=== PATIENT | female | born 1945 | race Caucasian/White ===

== ENCOUNTER → 2016-11-28 | Outpatient (CLI) | payer OTHER ==
[~2016-11-28] MED LIST: BUPR-79 PO; CHOL1CAP57 PO; CLC/300 PO; CLX20 PO; DOXY50CA PO; LEVO125T72 PO; LORA0.5T12 PO; METO1TAB69 PO; METR1GEL3 TOP; PRLSR20 PO; TRIATAB3 PO; ULT50X PO
[2016-11-28 17:11] LABS: ALT/SGPT 34 U/L (12-78); BLOOD UREA NITROGEN 30 mg/dl (7-18); BUN/CREATININE RATIO 30.7 (10-20); CALCIUM 8.9 mg/dl (8.5-10.1); CARBON DIOXIDE 25 mmol/L (21-32); CHLORIDE 99 mmol/L (98-107); CHOLESTEROL 281 mg/dl (0-200); CREATININE 0.97 mg/dl (0.60-1.20); GLUCOSE 78 mg/dl (70-99); POTASSIUM 4.6 mmol/L (3.5-5.1); SODIUM 133 mmol/L (136-145)
[2016-11-28 17:22] LABS: ALB/GLOB RATIO 1.1 (0.9-2); ALKALINE PHOSPHATASE 43 U/L (45-117); AST/SGOT 18 U/L (15-37); CHOLESTEROL/HDL RATIO 4.1; HDL CHOLESTEROL 69 mg/dl; LDL CHOLESTEROL CALCULATED 172 mg/dl; TRIGLYCERIDES 198 mg/dl (0-150); VERY LOW DENSITY LIPOPROT CALC 40 mg/dl
== END | disposition home or self-care (01) ==
LOC: C.LABPVFM 14:36
PROVIDERS: ATTEND Family Medicine
DX: Z00.00 Encounter for general adult medical examination without abnormal findings (principal); E78.5 Hyperlipidemia, unspecified; I10 Essential (primary) hypertension; E03.9 Hypothyroidism, unspecified

== ENCOUNTER 2016-12-03 15:27 | Emergency (ER) | payer OTHER ==
[~2016-12-03] VITALS: Ht 167.6 cm; Wt 95.3 kg
[2016-12-03 15:50] VITALS: BP 150/71; PULSE 75; TEMP 36.9; O2SAT 98; Ht 167.6 cm; Wt 95.3 kg
--- NOTE | 2016-12-03 16:43 | EMERGENCY ROOM VISIT NOTE ---
History Report prepared by Annmarie: Adrián Urbina Under the Supervision of: Dr. Genny Dias M.D. First contact with patient: 16:09 Chief Complaint: VAGINAL BLEEDING Stated Complaint: VAGINAL BLEEDING History of Present Illness The patient is a 71 year old female who presents to the Emergency Room with complaints of sudden vaginal bleeding beginning a few hours prior to arrival. She states she was applying an over the counter moisturizer for vaginal dryness and noticed bleeding. The patient notes she observed the area with a mirror and believes she saw a tear that was causing the bleeding. She states she had a normal bowel movement prior to the moisturizing application but denies straining too hard. The patient denies having issues with abnormal vaginal bleeding in the past. She denies a hysterectomy or similar procedures. The patient denies a fever, abdominal pain, and vomiting. 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 A total of 10 systems reviewed and were otherwise negative. Past Medical & Surgical Medical Problems: (1) Hypertension (2) Rosacea Surgical Problems: (1) History of carpal tunnel surgery Family History Cancer Diabetes mellitus Hypertension Social History Smoking Status: Never Smoker Marital Status: Housing Status: lives with family Occupation Status: employed Current/Historical Medications Scheduled Bupropion (Wellbutrin Sr), 150 MG PO QAM Cholecalciferol (Vitamin D3), 1 CAP PO BID Citalopram (Citalopram Hydrobromide), 20 MG PO QAM Clindamycin HCl (Clindamycin HCl), 2 CAP PO DENTAL PROCEDURE Doxycycline Hyclate (Vibramycin), 50 MG PO QAM Levothyroxine Sodium (Synthroid), 125 MCG PO QAM Metoprolol Succ (Toprol Xl) (Toprol-Xl ), 100 MG PO QAM Metronidazole Hcl (Metrogel), 1 DOSE TOP DAILY Omeprazole (Prilosec), 20 MG PO QAM Triamterene/Hctz (Triamterene/Hctz 37.5-25MG), 1 TAB PO QAM Scheduled PRN Lorazepam (Lorazepam), 1 TAB PO HS PRN for Sleep Tramadol HCl (Tramadol HCl), 1 TAB PO Q4-6HRS PRN for Pain Allergies Coded Allergies: Penicillins (Verified Allergy, Intermediate, rash joints getting stiff, 07/22/15) Sulfa Drugs (Verified Allergy, Intermediate, rash joints get stiff, ) Propoxyphene (Verified Adverse Reaction, Intermediate, NAUSEA AND VOMITING , 07/22/15) Physical Exam Vital Signs Date Time Temp Pulse Resp B/P Pulse Ox O2 Delivery O2 Flow Rate FiO2 12/03/16 15:50 36.9 75 20 150/71 98 Room Air Physical Exam Vital signs reviewed. General: Elderly. Well-appearing female, in no significant distress. HEENT: No scleral icterus, PERRLA, neck supple. Atraumatic. Cardiovascular: Regular rate and rhythm, no extra sounds. Pulmonary: Clear to auscultation bilaterally, normal work of breathing. Abdomen: Soft, nontender, nondistended, positive bowel sounds. Pelvic Exam: Abrasion noted to the anterior vaginal wall. Old blood in the vault with no active bleeding. Musculoskeletal: Atraumatic, no peripheral edema. Neurologic: Patient awake alert and oriented x 3 Skin: Warm, dry, no rash Medical Decision & Procedures ED Course 162: Past medical records reviewed. The patient was evaluated in room C3. A complete history and physical examination was performed. 1644: Upon reevaluation, the patient appeared to have improvement of her symptoms. I discussed findings with her. She verbalized agreement of the treatment plan. The patient was discharged home. Medical Decision Etiologies such as dysfunction uterine bleeding, bleeding dyscrasia, trauma, infection, as well as others were entertained. This patient was evaluated and appeared to be in no significant distress. Physical examination is fairly unrevealing. Pelvic exam was performed and reveals a mild abrasion to the anterior vaginal wall. There is no active bleeding at this time. There is very scant amount of older blood in the vaginal vault. Patient was advised of the findings. She was using a vaginal suppository for dryness, I suspect she has scraped the tissue and created an abrasion. The patient states she is under close observation by [employer] for endometrial thickening. She was advised to contact her [employer] later in the week to schedule short-term follow-up. She will return to the ER for worsening of symptoms or any medical concerns. Impression Primary Impression: Vaginal trauma Scribe Attestation The scribe's documentation has been prepared under my direction and personally reviewed by me in its entirety. I confirm that the note above accurately reflects all work, treatment, procedures, and medical decision making performed by me. Departure Information Dispostion Home / Self-Care Referrals Meet Escobar M.D. (PCP) Forms HOME CARE DOCUMENTATION FORM, IMPORTANT VISIT INFORMATION, WORK / SCHOOL INSTRUCTIONS Patient Instructions My [facility] Additional Instructions Diagnosis: Vaginal trauma Do not insert anything into the vagina for the next 48 hours. Follow-up with Dr. Ortiz regarding the vaginal bleeding if it continues and vaginal dryness. Return to the emergency department for worsening of symptoms or any medical concerns. Problem Qualifiers Primary Impression: Vaginal trauma Encounter type: initial encounter Qualified Codes: S39.93XA - Unspecified injury of pelvis, initial encounter
== END 2016-12-03 16:56 | disposition home or self-care (01) ==
LOC: C.EDB 15:28 → C.EDC 16:56
DX: S39.94XA Unspecified injury of external genitals, initial encounter (principal); X58.XXXA Exposure to other specified factors, initial encounter; I10 Essential (primary) hypertension

== ENCOUNTER → 2017-01-01 | Outpatient (CLI) | payer OTHER ==
--- NOTE | 2017-01-01 12:15 | DIAGNOSTIC IMAGING REPORT ---
SCOLIOSIS 2 VIEW (AP LAT) CLINICAL HISTORY: SACROILIITIS. Back pain. COMPARISON STUDY: None. FINDINGS: AP and lateral views of the entire spine. Moderate to severe levoscoliosis of the lumbar spine. This measures a Mercer angle of 45 degrees measured from the superior endplate of L1 to the superior endplate of L5. Cervical and thoracic spine curvature is intact. There is moderate left and mild right degenerative changes within the sacroiliac joints. There is 5 mm of anterolisthesis of C3 on C4. Moderate to severe degenerative disc disease seen throughout the majority of the cervical and lumbar spine. No acute fractures identified. IMPRESSION: 1. Moderate to severe levoscoliosis of the lumbar spine. 2. Approximately 5 mm of anterolisthesis of C3 on C4. This favors long-standing degenerative change. 3. Moderate to severe degenerative disc disease within the majority of the cervical and lumbar spine. Electronically signed by: Victor Manuel Keating M.D. 01/01/2017 12:14 PM Dictated Date/Time: 01/01/2017 12:07 PM
== END | disposition home or self-care (01) ==
LOC: C.RADBC 11:42
PROVIDERS: ATTEND Anesthesiology
DX: M46.1 Sacroiliitis, not elsewhere classified (principal); M41.9 Scoliosis, unspecified; M43.12 Spondylolisthesis, cervical region; M50.30 Other cervical disc degeneration, unspecified cervical region; M51.36 Other intervertebral disc degeneration, lumbar region

== ENCOUNTER → 2017-02-22 | Outpatient (CLI) | payer OTHER ==
[~2017-02-22] MED LIST changes: +METO100T44 PO; -METO1TAB69 PO
--- NOTE | 2017-03-05 08:22 | CODING QUERY MEDICAL NECESSITY ---
SUPPORTING DIAGNOSIS NEEDED Dr. Vasques, A supporting diagnosis is required for the test/procedure performed on this patient in order for us to be reimbursed by the patient's insurance. Please provide a supporting diagnosis for the following test/procedure listed below next to the test name along with your signature. *If there is no additional diagnosis for this patient that would support the following test/procedure please document that below next to the test/procedure. Test(s)/Procedure(s) that require a supporting diagnosis: * ([id number]) DXA BONE DENSITY, AXIAL DIAGNOSIS: DATE OF SERVICE: 02/22/17 Provider Signature: Date: Thank you Ken Almanza [facility] Information Management Once completed, please kindly fax back to [phone] For questions please call [phone]
== END | disposition home or self-care (01) ==
LOC: C.MAMM 14:47
PROVIDERS: ATTEND Neurological Surgery
DX: M41.9 Scoliosis, unspecified (principal); Z13.820 Encounter for screening for osteoporosis

== ENCOUNTER → 2017-03-20 | Outpatient (CLI) | payer OTHER ==
--- NOTE | 2017-03-20 15:22 | MAMMOGRAPHY REPORT ---
BILATERAL DIGITAL SCREENING MAMMOGRAM WITH CAD: 03/20/2017 CLINICAL HISTORY: Routine screening examination. TECHNIQUE: Bilateral CC and MLO views were obtained. Current study was also evaluated with a Comput er Aided Detection (CAD) system. COMPARISON: Comparison is made to exams dated: 02/24/2016 mammogram, 02/23/2015 mammogram, 02/17/2014 mammogram, 02/10/2013 mammogram, 12/08/2011 mammogram, and 12/02/2010 mammogram - [facility]. BREAST COMPOSITION: There are scattered areas of fibroglandular density in both breasts. FINDINGS: There are a few benign rim calcifications in the right breast. No suspicious mass, viet ectural distortion or cluster of microcalcifications is seen. IMPRESSION: ACR BI-RADS CATEGORY 1: NEGATIVE There is no mammographic evidence of malignancy. A 1 year screening mammogram is recommended. The p atient will receive written notification of the results. Approximately 10% of breast cancers are not detected with mammography. A negative mammographic repor t should not delay biopsy if a clinically suggestive mass is present. Chasity Garcia M.D. ay/:03/20/2017 13:56:10 Twist Maker: Earlene LISA(R)(M), [facility] letter sent: Normal 1/2 BI-RADS Code: ACR BI-RADS Category 1: Negative
== END | disposition home or self-care (01) ==
LOC: C.MAMM 11:08
PROVIDERS: ATTEND Obstetrics & Gynecology
DX: Z12.31 Encounter for screening mammogram for malignant neoplasm of breast (principal)

== ENCOUNTER → 2017-09-28 | Outpatient (CLI) | payer OTHER ==
[2017-09-28 13:13] LABS: ALT/SGPT 38 U/L (12-78); AST/SGOT 21 U/L (15-37); BLOOD UREA NITROGEN 20 mg/dl (7-18); BUN/CREATININE RATIO 21.3 (10-20); CARBON DIOXIDE 27 mmol/L (21-32); CHLORIDE 101 mmol/L (98-107); CHOLESTEROL 277 mg/dl (0-200); CREATININE 0.94 mg/dl (0.60-1.20); GLUCOSE 86 mg/dl (70-99); POTASSIUM 4.3 mmol/L (3.5-5.1); SODIUM 135 mmol/L (136-145); TRIGLYCERIDES 155 mg/dl (0-150); VERY LOW DENSITY LIPOPROT CALC 31 mg/dl
[2017-09-28 13:24] LABS: ALKALINE PHOSPHATASE 52 U/L (45-117); CHOLESTEROL/HDL RATIO 4.4; HDL CHOLESTEROL 63 mg/dl; LDL CHOLESTEROL CALCULATED 183 mg/dl; THYROID STIMULATING HORMONE 0.566 uIu/ml (0.300-4.500)
== END | disposition home or self-care (01) ==
LOC: C.LABPVFM 09:11
PROVIDERS: ATTEND Family Medicine
DX: E78.5 Hyperlipidemia, unspecified (principal); E03.9 Hypothyroidism, unspecified

== ENCOUNTER → 2018-03-04 | Outpatient (CLI) | payer OTHER | END | disposition home or self-care (01) | LOC: C.PATHSPEC 18:01 | PROVIDERS: ATTEND Dermatology | DX: C44.519 Basal cell carcinoma of skin of other part of trunk (principal) ==

== ENCOUNTER → 2018-06-12 | Outpatient (CLI) | payer OTHER | END | disposition home or self-care (01) | LOC: C.LAB1850 11:59 | PROVIDERS: ATTEND Family Medicine | DX: E03.9 Hypothyroidism, unspecified (principal) ==

== ENCOUNTER 2018-10-31 09:41 | Inpatient (IN) ==
--- NOTE | 2018-08-07 09:18 | PAT Medication Instructions ---
Medication Instructions Date of Service August 07, 2018 Home Medications bupropion HCl 150 mg PO QAM cholecalciferol (vitamin D3) 1,000 unit PO QAM citalopram 20 mg PO QAM clindamycin HCl 600 mg PO DAILY NEEDED diclofenac sodium 1 - 2 mg PO BID doxycycline hyclate 50 mg PO WK NEEDED levothyroxine 125 mcg PO QAM lorazepam 1 mg PO HS NEEDED metoprolol succinate 50 mg PO QAM metronidazole 1 applic TOPICAL DAILY NEEDED omeprazole 20 mg PO QAM simvastatin 40 mg PO HS tramadol 50 mg PO Q6H NEEDED triamterene-hydrochlorothiazid 1 cap PO QAM Continue as directed doxycycline hyclate 50 mg PO WK NEEDED Check with MD/Surgeon-instructions diclofenac sodium 1 - 2 mg PO BID Hold the morning of surgery cholecalciferol (vitamin D3) 1,000 unit PO QAM clindamycin HCl 600 mg PO DAILY NEEDED metronidazole 1 applic TOPICAL DAILY NEEDED triamterene-hydrochlorothiazid 1 cap PO QAM Take morning of surgery Take the following medication the morning of surgery with a sip of water, OTHERWISE NOTHING TO EAT OR DRINK AFTER MIDNIGHT: bupropion HCl 150 mg PO QAM citalopram 20 mg PO QAM metoprolol succinate 50 mg PO QAM omeprazole 20 mg PO QAM tramadol 50 mg PO Q6H NEEDED - STOP 4 HOURS BEFORE SURGERY Take evening before surgery lorazepam 1 mg PO HS NEEDED simvastatin 40 mg PO HS tramadol 50 mg PO Q6H NEEDED Other Notes If you have any questions please call us at [phone] or [phone] or [phone] or [phone]
--- NOTE | 2018-08-07 14:01 | Anesthesiology Consultation ---
Date of Service August 07, 2018 Assessment & Plan (1) Encounter for pre-operative examination: Chart Review Chart Review: Acceptable Risk for Surgery and Patient seen in Pre Admission Testing Consults Requested none Teaching & Discussion Pre-Anesthesia Teaching/Discussion Notes: Instructed NPO after midnight before surgery,except medications with 15 cc of water. Medication instructions provided according to the PAT guidelines. Additional Notes PCP was notified about patients persistent hyponatremia and asked to evaluate at her pre-op clearance. Patient was seen by PCP on 08/15/18. Per PCP, " her Na + is slightly lower than normal." "patient has been consistently hyponatremic but only slightly. Has never had any K+ abnormalities. Pt is on HCTZ which could be a contributor. Since the abnormalities are relatively minute, I don't not (sic) feel that this should be an issue with regards to anesthesia/surgery. I did advise pt to drink a gatorade every other day from now till the surgery." "Pt is therefore medically "cleared"/optimized for her knee surgery." History Surgery Operation Date: 08/29/18 09:35 Proposed Procedures p Right Knee Revision Arthroplasty, Revision Tibial Component - Nando Romo MD Height/Weight Height: 5 ft 5 in Weight: 89.9 kg Allergies Allergy/AdvReac Type Severity Reaction Status Date / Time Penicillins Allergy Intermediate rash Verified 08/05/18 12:14 joints getting stiff Sulfa (Sulfonamide Allergy Intermediate rash Verified 08/05/18 12:14 Antibiotics) joints get stiff propoxyphene AdvReac Intermediate NAUSEA AND Verified 08/05/18 12:14 VOMITING Medications Home Medications Medication Instructions Recorded Confirmed Last Taken bupropion HCl 150 mg PO QAM 08/05/18 08/05/18 Unknown cholecalciferol (vitamin D3) 1,000 unit PO QAM 08/05/18 08/05/18 Unknown citalopram 20 mg PO QAM 08/05/18 08/05/18 Unknown clindamycin HCl 600 mg PO DAILY PRN 08/05/18 08/05/18 Unknown diclofenac sodium 1 - 2 mg PO BID 08/05/18 08/05/18 Unknown doxycycline hyclate 50 mg PO WK PRN 08/05/18 08/05/18 Unknown levothyroxine 125 mcg PO QAM 08/05/18 08/05/18 Unknown lorazepam 1 mg PO HS PRN 08/05/18 08/05/18 Unknown metoprolol succinate 50 mg PO QAM 08/05/18 08/05/18 Unknown metronidazole 1 applic TOPICAL DAILY PRN 08/05/18 08/05/18 Unknown omeprazole 20 mg PO QAM 08/05/18 08/05/18 Unknown simvastatin 40 mg PO HS 08/05/18 08/05/18 Unknown tramadol 50 mg PO Q6H PRN 08/05/18 08/05/18 Unknown triamterene-hydrochlorothiazid 1 tab PO QAM 08/05/18 08/05/18 Unknown Past Medical History Medical History Anxiety Bipolar disorder Cancer hx melanoma - DJD (degenerative joint disease) Exertional dyspnea had stress testing done - negative result GERD (gastroesophageal reflux disease) Hypertension Hypothyroidism Incontinence of urine urgency and incontinence especially in the morning Nausea and vomiting after administration of anesthetic agent Osteoarthritis Scoliosis Past Surgical History Surgical History History of bilateral tubal ligation History of blepharoplasty History of carpal tunnel release of both wrists History of colonoscopy History of knee replacement procedure of left knee History of knee replacement procedure of right knee History of tonsillectomy Past Anesthesia History No Hx of Anesthesia Complications (OTHER THAN PONV) Mother has history of PONV, otherwise no family history of anesthesia complications. History of PONV Yes Motion Sickness Screening History of Motion Sickness: No Social History Smoking Status: Never smoker Do You Dip or Chew Tobacco: No Hx Alcohol Use: No Hx Substance Use: No substance use type: does not use Exercise / Class Metabolic Activity III < 4 Walking/Shop/Light housework (Limited by scoliosis and loss of muscle tone and also by knee pain. Likes to go to stores and walk around to keep moving. When walking up a FOS, patient denies CP but does report SOB. States she gets no SOB on flat surfaces. ) Review of Systems Patient denies chest pain, reflux, cough, wheezing, palpitations. Patient does endorse SOB/ALVARADO when walking up stairs or hills. Had a cardiac workup at [facility] 3- 4 years ago and it was negative. Physical Exam Vital Signs BP: 120/80 P: 62 R: 18 T: 98.2 SPO2: 99% on RA ENMT external ear and nose normal, oropharynx normal Thyromental Distance: < 3.5 Finger Breadths (3) Mallampati Class: III Mouth / Teeth: 2 1. Fair dentition with some missing teeth Neck normal visual inspection and trachea midline Respiratory normal respiratory effort, lungs clear to auscultation Cardiovascular Rate/Rhythm: regular rate and regular rhythm Heart Sounds: no murmur Vessels: no carotid bruit Psychiatric A+Ox3, euthymic affect Testing Laboratory Results 08/07/18 14:18 08/07/18 14:18 Blood Type A Positive 08/07/18 14:18 Antibody Screen NEGATIVE 08/07/18 14:18 PT 10.1 Seconds (9.0-12.0) 08/07/18 14: INR 1.0 (0.9-1.1) 08/07/18 14:18 APTT 26.6 Seconds (21.0-31.0) 08/07/18: Hemoglobin A1c 5.8 % (4.5-5.6) H 08/07/18 14:18 Urine Color Yellow 08/07/18 14:18 Urine Appearance Clear (Clear) 08/07/18 14:18 Urine pH 7.5 (4.5-7.5) 08/07/18 14:18 Ur Specific [place] 1.008 (1.000-1.030) 08/07/18 14:18 Urine Protein Negative (Negative) 08/07/18 14:18 Urine Glucose (UA) Negative (Negative) 08/07/18: Urine Ketones Negative (Negative) 08/07/18: Urine Nitrite Negative (Negative) 08/07/18 14:18 Ur Leukocyte Esterase 2+ (Negative) H 08/07/18 14:18 Urine WBC (Auto) 5-10 /hpf (0-5) H 08/07/18 14:18 Urine RBC (Auto) 0-4 /hpf (0-4) 08/07/18:18 U Hyaline Cast (Auto) 1-5 /lpf (0-5) 08/07/18 14:18 U Epithel Cells (Auto) 10-20 /lpf (0-5) H 08/07/18:18 Urine Bacteria (Auto) 1+ (Negative) H 08/07/18 14:18 08/07/18 14:18 Urine Culture - Final Urine,Clean Catch Group B Beta Strep Patient has no urinary symptoms that she expressed and no sensitivity was given on the urine. Electrocardiogram Date: 08/07/18 Findings: + NSR @ (61) PACs Chest X-Ray Date: 08/07/18 FINDINGS: The heart is normal in size. There is no failure. There is no lobar consolidation. There is a hazy opacity at the level of the right cardiophrenic angle. Although nonspecific, this likely represents a summation of vascular markings with fat pad. There is no corresponding mass in the lateral projection. IMPRESSION: 1. Hazy opacity at the level of the right cardiophrenic angle, likely a summation 2. No evidence of failure. No evidence of lobar consolidation Stress Test Date: 12/04/12 Type: DSE Resting EF: 60% Resting LV Function: normal Resting RWMA: + none Valvular Disease: no significant valvular disease and MR (trivial) Negative DSE for ischemia at 88% MPHR. Positive Dobutamine ECG at 88% MPHR. No symptoms. Occasional PAC's noted during Dobutamine infusion and into recovery. ECHO: Mild TR Mild right atrial dilation Patient was seen by Dr. Montes in consultation after this test, who stated "Dobutamine stress echocardiogram in November was with normal echo response to stress. No echo evidence of dobutamine stress induced myocardial ischemia. There were borderline ECG changes. However, the echo response was normal. Normal resting left ventricular systolic function. No significant valvular abnormalities."
--- NOTE | 2018-08-07 14:43 | XRay Report ---
XR chest Pre-admission PA/Lat CLINICAL HISTORY: Preoperative chest COMPARISON STUDY: No previous studies for comparison. FINDINGS: The heart is normal in size. There is no failure. There is no lobar consolidation. There is a hazy opacity at the level of the right cardiophrenic angle. Although nonspecific, this likely repr esents a summation of vascular markings with fat pad. There is no corresponding mass in the lateral p rojection.[ IMPRESSION: 1. Hazy opacity at the level of the right cardiophrenic angle, likely a summation 2. No evidence of failure. No evidence of lobar consolidation Electronically signed by: Luis Levin M.D. 08/07/2018 2:41 PM
[2018-08-07 15:14] LABS: Basophils # (auto) 0.02 K/uL (0-0.2); Basophils % (auto) 0.3 %; Eosinophils # (auto) 0.07 K/uL (0-0.5); Eosinophils % (auto) 1.1 %; Hematocrit (blood only) 36.6 % (37-47); Hemoglobin 12.3 g/dL (12.0-16.0); Immature Granulocytes # (auto) 0.02 K/uL (0.00-0.02); Immature Granulocytes % (auto) 0.3 %; Lymphocytes # (auto) 1.32 K/uL (1.2-3.4); Lymphocytes % (auto) 21.1 %; Mean Corpuscular Hgb Conc 33.6 g/dL (32-36); Mean Corpuscular Volume 88.6 fL (80-100); Mean Platelet Volume 9.4 fL (7.4-10.4); Monocytes # (auto) 0.65 K/uL (0.11-0.59); Monocytes % (auto) 10.4 %; Neutrophils # (auto) 4.18 K/uL (1.4-6.5); Neutrophils % (auto) 66.8 %; Platelet Count 278 K/uL (130-400); RDW Standard Deviation 42.1 fL (36.4-46.3); Red Blood Count 4.13 M/uL (4.2-5.4); White Blood Count 6.26 K/uL (4.8-10.8)
[2018-08-07 15:21] LABS: Partial Thromboplastin Time 26.6 Seconds (21.0-31.0); Prothrombin Time 10.1 Seconds (9.0-12.0)
[2018-08-07 15:25] LABS: Albumin Level 3.6 gm/dl (3.4-5.0); BUN Creatinine Ratio 17.8 (10-20); Creatinine Clr Calc Pharmacy 58.7 ml/min; Est GFR (African American) 68.5; Est GFR (Non-African American) 59.1; Potassium 4.4 mmol/L (3.5-5.1)
[2018-08-07 15:38] LABS: Appearance Urine Clear (Clear); Bacteria Urine Automated 1+ (Negative); Bilirubin Urine Negative (Negative); Color Urine Yellow; Glucose Urine UA Negative (Negative); Ketones Urine Negative (Negative); Leukocyte Esterase Urine 2+ (Negative); Nitrite Urine Negative (Negative); Protein Urine Negative (Negative); Specific Gravity Urine 1.008 (1.000-1.030); Urobilinogen Urine Negative (Negative); pH Urine 7.5 (4.5-7.5)
[2018-08-08 05:52] LABS: Estimated Average Glucose 120 mg/dl
--- NOTE | 2018-10-30 10:48 | History and Physical Report ---
DATE OF ADMISSION: 10/31/2018 CHIEF COMPLAINT: Right knee pain status post previous total knee arthroplasty. HISTORY OF PRESENT ILLNESS: The patient is a 73-year-old female approximately 4 years status post right total knee arthroplasty. She was seen several months ago for recurring right knee pain. X-rays revealed a lucency about the tibial component of the knee concerning for loosening. The patient had some blood work to rule out an infectious process. Her sed rate and CRPs were normal. She is now scheduled for a right total knee tibial component revision versus complete knee revision for aseptic loosening. PAST MEDICAL HISTORY: Hypertension, hypothyroidism, GERD. PAST SURGICAL HISTORY: Right total knee as above, left total knee arthroplasty. MEDICATIONS: Tylenol 325 mg q. 4 hours p.r.n., metoprolol succinate ER 100 mg daily, vitamin D 3000 units daily, triamterene/hydrochlorothiazide 37.5/25 daily, Tirosint 137 mcg daily, simvastatin 40 mg daily, omeprazole 20 mg daily, citalopram 20 mg daily, bupropion HCL SR 150 mg 2 times daily, Ventolin inhaler 2 puffs q. 4-6 hours p.r.n. ALLERGIES: DARVOCET, SULFA AND PENICILLIN. SOCIAL HISTORY AND REVIEW OF SYSTEMS: Noncontributory. PHYSICAL EXAMINATION: GENERAL: Well-nourished, well-developed elderly female who appears stated age. HEENT: Normocephalic, atraumatic, extraocular movements intact, oropharynx pink and moist. NECK: Supple without adenopathy. LUNGS: Clear to auscultation bilaterally. HEART: Regular rate and rhythm. ABDOMEN: Soft, nontender, nondistended. EXTREMITIES: Upper extremity is within normal limits. The right knee has a well-healed midline incision from her previous arthroplasty. Her range of motion is about 0-120 degrees. X-RAYS: X-rays were reviewed. She has a total knee in place on the right side. There is evidence of lucency about the tibial component. There is no evidence of any lucencies about the femoral component. ASSESSMENT: Aseptic loosening of tibial component, right total knee arthroplasty. PLAN: The above discussed with the patient. Risks versus benefits were discussed, consent was obtained. We will proceed with right total knee tibial component revision versus complete knee revision as indicated.
[~2018-10-31 09:41] MED LIST changes: +ACETAMINOPHEN 500 MG TAB PO SCH; +BUPIVACAINE 0.5 % 5 MG/1 ML PF 10ML VIAL ONE; -BUPR-79 PO; -CHOL1CAP57 PO; -CLC/300 PO; +CLINDAMYCIN 600 MG/54 ML BAG IV SCH; -CLX20 PO; +CeleBREX 200 MG CAP PO SCH; -DOXY50CA PO; +EPINEPHrine INJ 1 MG/ML AMP ONE; +FAMOTIDINE 20 MG TAB PO SCH; +GABAPENTIN 300 MG PO SCH; -LEVO125T72 PO; -LORA0.5T12 PO; +LR 500ML BOLUS, THEN 15ML/HR IV SCH; -METO100T44 PO; +METOCLOPRAMIDE HCL 10 MG TABLET PO SCH; -METR1GEL3 TOP; +MIDAZOLAM HCL 1 MG/ML 2ML VIAL ONE; -PRLSR20 PO; +ROPIVACAINE 0.5% 5 MG/ML 30 ML VIAL ONE; +ROPIVACAINE 0.5% HCL/PF 150 MG, BUPIVACAINE 0.5% MPF 30 ML, EPINEPHrine 30MG/30ML (OR U... INFIL SCH; +TRANEXAMIC ACID 1,000 MG **IV Intra-op IV SCH; +TRANEXAMIC ACID 1,000 MG **IV Pre-op IV SCH; -TRIATAB3 PO; -ULT50X PO; +dexAMETHasone 4 MG TAB PO SCH; +fentaNYL citrate 100 MCG/2 ML VIAL ONE
--- NOTE | 2018-10-31 10:09 | History & Physical Bridge Note ---
Date of Service October 31, 2018 History & Physical Bridge Note I have examined the patient, reviewed the History & Physical and in the interval since the performance of the History & Physical I have noted the following changes of clinical significance: no changes noted
[2018-10-31] MEDS ORDERED: HYDROmorphone INJ 1 MG/ML SYRINGE IV PRN (10:20)
[2018-10-31] MEDS ORDERED: ATROPINE SULFATE 0.1 MG/ML 5ML SYR IV PRN (10:20)
[2018-10-31] MEDS ORDERED: PHENYLEPHRINE 100MCG/ML 5ML SYR IV PRN (10:20)
[2018-10-31] MEDS ORDERED: fentaNYL citrate 100 MCG/2 ML VIAL IV PRN (10:20)
[2018-10-31] MEDS ORDERED: LABETALOL HCL IV 5 MG/ML 20ML IV PRN (10:20)
[2018-10-31] MEDS ORDERED: MEPERIDINE HCL 25 MG/ML CARP IV PRN (10:20)
[2018-10-31] MEDS ORDERED: ONDANSETRON INJ 2 MG/ML 2 ML VIAL IV PRN ×2 (10:20→15:46)
[2018-10-31] MEDS ORDERED: ePHEDrine sulfate 50 MG/ML AMP IV PRN (10:20)
[2018-10-31] MEDS ORDERED: ORTHO JOINT ANESTHETIC ONE (10:42)
[2018-10-31] MEDS ORDERED: POVIDONE-IODINE OP SOLN 30 ML BTL ONE (10:42)
[2018-10-31] MEDS ORDERED: BACITRACIN INJ 50,000 UNIT VIAL ONE (10:42)
[2018-10-31] MEDS ORDERED: MIDAZOLAM HCL 1 MG/ML 2ML VIAL ONE (11:36)
[2018-10-31] MEDS ORDERED: fentaNYL citrate 100 MCG/2 ML VIAL ONE (11:36)
[2018-10-31] MEDS ORDERED: ONDANSETRON INJ 2 MG/ML 2 ML VIAL ONE (11:42)
--- NOTE | 2018-10-31 13:50 | Anesthesiology Progress Note ---
Date of Service October 31, 2018 Anesthesia Post Procedure Vital Signs Vital Signs: Temp Pulse Pulse Resp BP Pulse Ox 10/31/18 13:45 75 16 132/73 100 10/31/18 13:37 36 C L 79 16 140/80 100 10/31/18 10:07 37 C 82 20 131/83 100 Notes Mental Status: alert / awake / arousable Patient Amnestic to Procedure: Yes Nausea / Vomiting: adequately controlled Pain: adequately controlled Airway Patency, RR, SpO2: stable & adequate BP & HR: stable & adequate Hydration State: stable & adequate Neuraxial Anesthesia: was administered and sensory block is resolving Anesthetic Complications: no major complications apparent and Pt Satisfied with anesthetic care
--- NOTE | 2018-10-31 14:25 | XRay Report ---
XR knee RT 2V routine HISTORY: 73 years-old Female Surgical Post Op right knee total joint arthroplasty. History of degene rative joint disease. COMPARISON: Radiographs 09/16/2014 TECHNIQUE: 2 views of the right knee FINDINGS: Status post revision of the right knee total joint arthroplasty with patellar resurfacing. Elongated femoral stem is present. Alignment is satisfactory without acute fracture, dislocation or definite re tained foreign body. Expected postsurgical soft tissue swelling with deep tissue air. Anterior skin s taples are noted along with surgical drain. IMPRESSION: Right knee total joint arthroplasty with satisfactory alignment. The above report was generated using voice recognition software. It may contain grammatical, syntax o r spelling errors. Electronically signed by: Samuel Hassan M.D. 10/31/2018 2:23 PM
[2018-10-31] MEDS ORDERED: ALUMINUM/MAGNESIUM SUSP 30 ML UDC PO PRN (15:46)
[2018-10-31] MEDS ORDERED: MAGNESIUM HYDROXIDE SUSP 30 ML UDC PO PRN (15:46)
[2018-10-31] MEDS ORDERED: SODIUM CHLORIDE 0.9% 1000ML 1,000 ML IV SCH (16:30)
[2018-10-31] MEDS: OXYCODONE HCL IR 5 MG TAB (IMMEDIATE RELEASE) PO PRN ×2 (18:14→21:55)
[2018-10-31] MEDS: MoRPHine SULFATE 2 MG/ML CARP IV PRN (19:10)
[2018-10-31] MEDS: CLINDAMYCIN 600 MG in DEXTROSE 5% 50 ML IV SCH (19:19)
[2018-10-31] MEDS: DOCUSATE SODIUM 100 MG CAP PO SCH (20:45)
[2018-10-31] MEDS: ASPIRIN 81 MG ECTAB PO SCH (20:45)
[2018-10-31] MEDS: SIMVASTATIN 40 MG TAB PO SCH (20:46)
[2018-10-31] MEDS: SENNA 8.6 MG TAB PO SCH (20:46)
[2018-10-31] MEDS: ACETAMINOPHEN 500 MG TAB PO SCH (21:03)
[2018-11-01] MEDS: OXYCODONE HCL IR 5 MG TAB (IMMEDIATE RELEASE) PO PRN ×5 (01:56→22:23)
[2018-11-01] MEDS: CLINDAMYCIN 600 MG in DEXTROSE 5% 50 ML IV SCH (04:15)
[2018-11-01] MEDS: LEVOTHYROXINE SODIUM 125 MCG TABLET PO SCH (04:49)
[2018-11-01] MEDS: ACETAMINOPHEN 500 MG TAB PO SCH ×3 (04:49→21:26)
[2018-11-01 07:39] LABS: Hematocrit (blood only) 31.5 % (37-47); Hemoglobin 10.4 g/dL (12.0-16.0); Mean Platelet Volume 9.4 fL (7.4-10.4); Platelet Count 246 K/uL (130-400); RDW Coefficient of Variation 14.1 % (11.5-14.5); RDW Standard Deviation 46.5 fL (36.4-46.3); Red Blood Count 3.46 M/uL (4.2-5.4); White Blood Count 8.04 K/uL (4.8-10.8)
[2018-11-01 08:17] LABS: BUN Creatinine Ratio 19.3 (10-20); Calcium 9.1 mg/dl (8.5-10.1); Creatinine Clr Calc Pharmacy 57.3 ml/min; Est GFR (African American) 67.6; Est GFR (Non-African American) 58.3; Potassium 3.7 mmol/L (3.5-5.1)
[2018-11-01] MEDS: DOCUSATE SODIUM 100 MG CAP PO SCH ×2 (08:54→21:25)
[2018-11-01] MEDS: TRIAMTERENE/HCTZ 37.5/25MG TAB PO SCH (08:55)
[2018-11-01] MEDS: BuPROPion XL 150 MG TABCR PO SCH (08:56)
[2018-11-01] MEDS: MULTIVITAMIN TAB PO SCH (08:56)
[2018-11-01] MEDS: METOPROLOL SUCC 50MG EXT REL TAB PO SCH (08:57)
[2018-11-01] MEDS: ASPIRIN 81 MG ECTAB PO SCH ×2 (08:57→21:25)
[2018-11-01] MEDS: PANTOprazole 40 MG TAB PO SCH (08:57)
[2018-11-01] MEDS: CITALOPRAM 20 MG TAB PO SCH (08:57)
--- NOTE | 2018-11-01 10:27 | Anesthesiology Progress Note ---
Date of Service November 01, 2018 Anesthesia Post Procedure Vital Signs Vital Signs: Temp Pulse Pulse Resp BP Pulse Ox 11/01/18 06:59 36.5 C 74 18 127/64 100 11/01/18 03:15 37.4 C 79 18 128/66 96 10/31/18 22:55 37.2 C 81 16 120/62 96 10/31/18 21:03 108/56 L 10/31/18 19:29 37.2 C 73 20 127/81 98 10/31/18 18:13 36.7 C 75 20 115/74 96 10/31/18 17:20 69 18 108/66 95 10/31/18 16:20 36.6 C 73 17 112/61 94 10/31/18 15:50 36.6 C 95 H 18 115/58 L 95 10/31/18 15:20 37 C 75 16 123/69 96 10/31/18 14:55 73 18 108/62 98 10/31/18 14:45 74 17 120/63 97 10/31/18 14:35 79 17 115/61 98 10/31/18 14:25 37.3 C 76 17 122/66 98 10/31/18 14:15 76 14 110/73 93 10/31/18 14:05 75 16 127/68 96 10/31/18 13:55 75 16 129/72 96 10/31/18 13:45 75 16 132/73 100 10/31/18 13:37 36 C L 79 16 140/80 100 Notes Mental Status: alert / awake / arousable and participated in evaluation Patient Amnestic to Procedure: Yes Nausea / Vomiting: adequately controlled Pain: adequately controlled Airway Patency, RR, SpO2: stable & adequate BP & HR: stable & adequate Hydration State: stable & adequate Neuraxial Anesthesia: was administered and sensory block resolved Anesthetic Complications: no major complications apparent and Pt Satisfied with anesthetic care
--- NOTE | 2018-11-01 11:29 | Progress Note ---
DATE: 11/01/2018 SUBJECTIVE: Patient is postop day 1 status post revision, right tibial component, status post TKA. She is currently sitting up in bed and is awake and alert and oriented without complaints. Pain is controlled and she denies any chest pain, shortness of breath, or lightheadedness. She denies calf tenderness at this time. Vital signs currently are stable and hemoglobin was noted to be 10.4. OBJECTIVE: Dressings were clean, dry and intact. Calves were soft, nontender. Neurovascularly intact. Toes were mobile. ASSESSMENT: Postop day 1 status post revision right tibial component of total knee arthroplasty with large synovectomy. PLAN: Start PT, OT protocols today. Continue DVT prophylaxis with aspirin b.i.d. Mini and ANNE castaneda.
[2018-11-01] MEDS: MoRPHine SULFATE 2 MG/ML CARP IV PRN (16:28)
[2018-11-01] MEDS: SENNA 8.6 MG TAB PO SCH (21:25)
[2018-11-01] MEDS: SIMVASTATIN 40 MG TAB PO SCH (21:26)
[2018-11-02] MEDS: ACETAMINOPHEN 500 MG TAB PO SCH (05:36)
[2018-11-02] MEDS: LEVOTHYROXINE SODIUM 125 MCG TABLET PO SCH (05:37)
[2018-11-02] MEDS: PANTOprazole 40 MG TAB PO SCH (08:19)
[2018-11-02] MEDS: BuPROPion XL 150 MG TABCR PO SCH (08:19)
[2018-11-02] MEDS: TRIAMTERENE/HCTZ 37.5/25MG TAB PO SCH (08:19)
[2018-11-02] MEDS: OXYCODONE HCL IR 5 MG TAB (IMMEDIATE RELEASE) PO PRN ×2 (08:19→12:20)
[2018-11-02] MEDS: DOCUSATE SODIUM 100 MG CAP PO SCH (08:19)
[2018-11-02] MEDS: ASPIRIN 81 MG ECTAB PO SCH (08:19)
[2018-11-02] MEDS: MULTIVITAMIN TAB PO SCH (08:19)
[2018-11-02] MEDS: CITALOPRAM 20 MG TAB PO SCH (08:19)
[2018-11-02] MEDS: METOPROLOL SUCC 50MG EXT REL TAB PO SCH (08:19)
--- NOTE | 2018-11-02 08:57 | Orthopedic Progress Note ---
Addendum entered and electronically signed by Raghavendra Mo PA-C 11/02/18 09:03: Addendum (Blank) Addendum November 02, 2018 09:02 Of note, intraoperative cultures continue to remain no growth to date. Original Note: Date of Service November 02, 2018 Assessment & Plan (1) Status post revision of total replacement of right knee: Continue PT and OT protocols today. Continue DVT prophylaxis with aspirin, SCDs, ANNE hose Pain management. Plan for discharge to home today with home health services. Patient seen and examined agree with above assessment and plan Subjective Postop day 2 status post right tibial component revision of TKA with moderate synovectomy. Patient is sitting at the edge of the bed. She states she is feeling much better today. She says that later yesterday she began having some increased pain in the knee and was not feeling well however this seems to have resolved since the dressing is been removed and the drain has been taken out. She denies shortness of breath, chest pain, lightheadedness. No new complaints today. She is hoping to go home. Physical Exam 2 Vital Signs (Past 24 Hours): Last Vital Signs Temp 36.6 C 11/02/18 08:43 Pulse 74 11/02/18 08:43 Resp 16 11/02/18 08:43 BP 135/74 11/02/18 08:43 Pulse Ox 99 11/02/18 08:43 Physical Exam: Prevena dressing is clean dry and intact. Calves are soft and nontender. Neurovascular is intact. Toes are mobile.
--- NOTE | 2018-11-02 11:31 | Discharge Summary ---
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 SECONDARY DIAGNOSES: Hypertension, hypothyroidism, gastroesophageal reflux disease, rosacea, history of head injury in the past. CONSULTS: None. COMPLICATIONS: None. PROCEDURES: Revision right tibial component of TKA prosthesis and a large synovectomy by Dr. Romo on 10/31/2018. BRIEF HISTORY: As dictated in the history and physical. HOSPITAL SUMMARY: The patient was admitted on the above-noted date and had the above-noted surgery performed, which she tolerated well. On the first postoperative day, the patient was currently sitting up in bed and was awake, alert and oriented. Pain was controlled that morning and denied any chest pain, shortness of breath or lightheadedness. Vital signs were stable and hemoglobin was 10.4. Dressings were clean, dry and intact. Calves were soft and nontender. Neurovascular was intact. Toes were mobile and she was started on physical therapy protocol and continued on DVT prophylaxis and pain management. By her second postoperative day, she was seen at the edge of the bed and states that she was feeling much better. She had appeared yesterday where she was having some increased pain and was not feeling well; however, this had resolved since the dressing had been removed and drainage had been taken out. She denies shortness of breath, chest pain or lightheadedness. No new complaints and was hoping to go home. Vital signs were stable. She was afebrile. Prevena dressing was clean, dry and intact. Calves were soft, nontender. Neurovascular was intact. Toes were mobile. She was progressing well with her physical therapy. Intraoperative cultures continued to remain no growth to date and it was felt she could be discharged to home with home health services for further physical therapy and care. For further review, please see chart. LABORATORY AND X-RAY DATA: As per chart. DISCHARGE INSTRUCTIONS: The patient discharged home in satisfactory condition with home health services. Diet: Regular. Activity: Weightbearing as tolerated on the right lower extremity. Follow TK instruction sheets and special care instructions as noted. Follow up with Dr. Romo in 2 weeks. The patient to call for appointment if one has not been made for you. DISCHARGE MEDICATIONS: Acetaminophen 1000 mg p.o. q. 8 hours, aspirin 81 mg p.o. b.i.d., doxycycline 100 mg p.o. b.i.d., oxycodone 5 mg p.o. q. 4 hours p.r.n., sennosides 17.2 mg p.o. at bedtime. Resume home meds as listed and stop taking Tylenol Arthritis, diclofenac and tramadol.
--- NOTE | 2018-11-15 14:15 | Operative Report ---
DATE OF OPERATION: 10/31/2018 PREOPERATIVE DIAGNOSIS: Aseptic loosening tibia, right knee. POSTOPERATIVE DIAGNOSIS: Aseptic loosening tibia, right knee. PROCEDURE: Revision tibial component, right knee. SURGEON: Nando Romo MD CERAMIC CAPACITOR PROCESSOR: KURT Matias ANESTHESIA: Spinal. COMPLICATIONS: None. DESCRIPTION OF PROCEDURE: Following induction of spinal anesthesia, the patient's right leg was prepped and draped in usual sterile manner. The limb was exsanguinated with an Esmarch bandage and tourniquet inflated to 350 mmHg. The previously made incision was reopened. Subcutaneous tissue was sharply dissected. Electrocautery was used for hemostasis. The median parapatellar incision was made and significant synovitis was noted. A complete synovectomy was carried out. Lateral snip was required. The tibial component was found to be grossly loose. The femoral and patellar components were intact. Careful dissection exposed enough of the tibial component for it to be removed and all bone cement was removed. Reamers were placed. An offset stem was chosen and a size 4 precoat tibial component with 5 mm medial and lateral augments was chosen. A 20 mm poly was chosen with an 11 mm offset stem. The final components were cemented into position. Knee was held in extension while cement hardened. The wound was thoroughly irrigated. Hemovac drain was placed. Betadine soak was utilized and the incision was closed with nonabsorbable suture. A Zipline was used for skin. Sterile dressing of Adaptic, 4 x 4's, sterile Webril and Raz was applied. The patient tolerated the procedure well. I attest to the content of the Intraoperative Record and any orders documented therein. Any exceptions are noted below. ADDENDUM Raghavendra Mo PA-C was the safety assistant on the case. He aided in all portions of the case including positioning, prepping, draping, surgical assistance, wound closure and dressing application. NARAYAN
== END 2018-11-02 13:29 | disposition home health service (06) | DRG 468 ==
LOC: ASU 09:41 → 3E 13:47

== ENCOUNTER 2021-09-20 09:34 | Inpatient (IN) ==
--- NOTE | 2021-09-20 09:48 | Emergency Department Note ---
Impression & Plan Sciatica, Back pain ED Provider Note NAME: JT PARTIDA AGE: 76 SEX: F : 1945 ARRIVES VIA: Walk-In INFORMANT: Patient, ED PROVIDER(S): Sukumar Hernandez MD Chief Complaint: Back pain HPI: Patient does presents with chronic back pain which is not relented. The patient states that she has been dealing with this for several months and has had canceled surgery since June. Patient does follow with Dr. Black and has been pending a lower lumbar sacral fusion. Patient denies any fevers chills chest pains or shortness of breath. No recent falls trauma twisting or turning. The patient does have pain just with sitting or ambulation. Patient denies any weakness. Patient does have some chronic urinary incontinence due to a drop bladder but denies any change in this. Patient denies any saddle anesthesia. Patient is vaccinated for Covid had a negative Covid yesterday. The patient was seen by anesthesia yesterday and was deemed acceptable risk for surgery. Patient does complain of pain in the right buttock with radiation down the right leg. Patient has been compliant with medications as well as back exercises to help with improvement in symptoms but this is not made him any better. The patient has not tried steroids for her back pain. The patient has been off diclofenac given her pending surgery. ROS: See HPI for pertinent positives and negatives. A total of 10 systems were rev iewed and otherwise negative. Past medical history: See below Surgical history: See below Social history: See below Physical Exam: GENERAL: NAD, wearing glasses, wearing a mask, non-toxic. EYE EXAM: Normal conjunctiva. PERRL, no anisocoria and EOM's grossly intact w/o pain. NECK: Supple, no nuchal rigidity, no adenopathy, non-tender. No signs of meningismus. LUNGS: Clear to auscultation. Normal chest wall mechanics. HEART: NSR, no MRG. ABDOMEN: Abdomen soft, non-tender, normo-active bowel sounds, no masses, no rebound or guarding. BACK: Mild pain to the lower lumbar with associated right buttock discomfort. SKIN: No rashes and no bruising. UPPER EXTREMITIES: Upper extremities are grossly normal. LOWER EXTREMITIES: Grossly normal, no edema. NEURO EXAM: A&O x3, cranial nerves II-XII grossly intact, normal speech, moves all 4 extremities on command w/o issue. Differential diagnoses: Musculoskeletal, disc herniation, fracture, metastatic disease, cord compression, discitis, sciatica, cauda equina, infection, aortic disease, renal colic, gastrointestinal, as well as other pathologies. Course: Patient was seen and evaluated the bedside. Full history physical exam was performed. Imaging Studies: See Below Cardiac monitoring: An order was placed for continuous cardiac monitoring. The monitor shows a rate of 72 with sinus rhythm. MDM: Patient did present due to concern for back pain. The patient has no saddle anesthesia or change in bladder incontinence as the patient has a known history. Patient denies any retention or bowel incontinence. Blood work was obtained along with a plain film. The patient was treated symptomatically. Upon reassessment the patient did have mild improvement in symptoms. I did speak with Dr. Black who would like to admit the patient for surgery. Patient was ordered a Covid test the patient was subsequently admitted to Dr. Black service. Past Med/Surg History Medical History Anxiety and depression Back pain, chronic DJD (degenerative joint disease) GERD (gastroesophageal reflux disease) controlled Hx of melanoma of skin Hyperlipidemia Hypertension Hypothyroidism Incontinence of urine urgency and incontinence especially in the morning Obesity Osteoarthritis Rosacea Scoliosis Spinal stenosis Surgical History H/O knee surgery Right knee revision History of bilateral tubal ligation History of blepharoplasty History of carpal tunnel release of both wrists History of colonoscopy History of foot surgery Left hammertoe History of tonsillectomy History of total knee replacement R/L Hx of melanoma excision Family History Grandmother No problems noted. Father Family history of diabetes mellitus Hypertension Mother Stomach cancer Family history of reaction to anesthesia SEVERE PONV Hypertension Sister Vaginal cancer Grandmother (Paternal) Family history of diabetes mellitus Denies family history of Ovarian cancer Prostate cancer Myocardial infarction Breast cancer Colorectal cancer Social History Smoking Status: Never smoker Second Hand Exposure: Yes (IN THE PAST); Hx Alcohol Use: No Hx Substance Use: No Preferred Language: Nepalese Communication Ability: Effective Visual Impairment: No Limitations Hearing Ability: Normal Safety Deposit Clerk Required: No Beliefs That Will Affect Care: None marital status: / Current Living Situation: Alone current occupational status: retired Feels Safe at Home: Yes caffeine: Yes Dental Care, Regularly: Yes Physical Activity Frequency: Does not Exercise Seatbelt Use: always Sunscreen Use: Yes Assistive Devices: Cane and Glasses Allergies Allergies Allergy/AdvReac Type Severity Reaction Status Date / Time Penicillins Allergy Intermediate Rash/joint Verified 09/20/21 11:11 stiffness Sulfa (Sulfonamide Allergy Intermediate Rash/joint Verified 09/20/21 11:11 Antibiotics) stiffness propoxyphene AdvReac Intermediate N/V Verified 09/20/21 11:11 Home Meds Home Medications Medication Instructions Recorded Confirmed clindamycin HCl 300 mg capsule 600 mg PO UD PRN 08/05/18 09/20/21 acetaminophen 650 mg 1,300 mg PO BID tab 07/10/19 09/20/21 tablet,extended release (Tylenol Arthritis Pain) sennosides 8.6 mg tablet (Senokot) 8.6 mg PO DAILY PRN 10/20/19 09/20/21 Pure Zzzs 2 tabs PO HS 06/27/21 09/20/21 escitalopram oxalate 20 mg tablet 20 mg PO QAM 09/20/21 09/20/21 furosemide 20 mg tablet 20 mg PO DAILY PRN 09/20/21 09/20/21 levothyroxine 125 mcg tablet 125 mcg PO DAILYBB 09/20/21 09/20/21 metronidazole 0.75 % topical gel 1 applic TOPICAL QAM 09/20/21 09/20/21 omeprazole 20 mg capsule,delayed 20 mg PO DAILYBB 09/20/21 09/20/21 release simvastatin 40 mg tablet 40 mg PO HS 09/20/21 09/20/21 tramadol 50 mg tablet 50 mg PO BID PRN 09/20/21 09/20/21 Previous Rx's Medication Instructions Recorded cholecalciferol (vitamin D3) 25 1,000 units PO BID #60 cap 05/10/19 mcg (1,000 unit) capsule valacyclovir 1 gram tablet 1,000 mg PO .COMPLEX PRN #21 tab 11/01/20 diclofenac sodium 50 mg 50 mg PO BID #180 tab 01/31/21 tablet,delayed release metoprolol succinate 100 mg 50 mg PO QAM #45 tab 07/01/21 tablet,extended release 24 hr triamterene 37.5 0.5 tab PO QAM #45 tab 07/01/21 mg-hydrochlorothiazide 25 mg tablet Results & Data (ED) Vital Signs Vital Signs - 24 hr 09/20/21 09:36 09/20/21 10:30 09/20/21 10:31 Temperature 36.3 C L Temperature Source Temporal Artery Scan Pulse Rate 95 H 65 Pulse Rate [Apical] 68 Pulse Rate from SpO2 Sensor Respiratory Rate 19 20 20 Respiratory Effort / Characteristics Non-Labored Spontaneous Non-Labored Spontaneous Respiratory Depth Normal Normal Respiratory Pattern Regular Regular Blood Pressure 201/78 H Blood Pressure [Left Arm] 171/93 H Blood Pressure Mean 119 Blood Pressure Mean [Left Arm] 119 Pulse Oximetry 97 97 98 Oxygen Delivery Method Room Air Room Air Room Air Sepsis Recent Fever Within 48 Hours No Sepsis New/Unexplained Change in Mental Status No Sepsis Action Taken by Nursing No Action Required 09/20/21 10:44 09/20/21 11:00 09/20/21 12:12 Temperature Temperature Source Pulse Rate 62 64 84 Pulse Rate [Apical] Pulse Rate from SpO2 Sensor 62 64 Respiratory Rate 17 13 14 Respiratory Effort / Characteristics Respiratory Depth Respiratory Pattern Blood Pressure 143/88 H 143/88 H Blood Pressure [Left Arm] Blood Pressure Mean 106 106 Blood Pressure Mean [Left Arm] Pulse Oximetry 99 99 98 Oxygen Delivery Method Sepsis Recent Fever Within 48 Hours Sepsis New/Unexplained Change in Mental Status Sepsis Action Taken by Nursing 09/20/21 12:30 09/20/21 13:00 09/20/21 13:30 Temperature Temperature Source Pulse Rate 73 69 67 Pulse Rate [Apical] Pulse Rate from SpO2 Sensor 73 68 68 Respiratory Rate 19 20 15 Respiratory Effort / Characteristics Respiratory Depth Respiratory Pattern Blood Pressure 163/101 H 147/102 H 139/77 Blood Pressure [Left Arm] Blood Pressure Mean 121 117 97 Blood Pressure Mean [Left Arm] Pulse Oximetry 98 97 97 Oxygen Delivery Method Sepsis Recent Fever Within 48 Hours Sepsis New/Unexplained Change in Mental Status Sepsis Action Taken by Nursing 09/20/21 14:00 Temperature Temperature Source Pulse Rate 67 Pulse Rate [Apical] Pulse Rate from SpO2 Sensor 67 Respiratory Rate 16 Respiratory Effort / Characteristics Respiratory Depth Respiratory Pattern Blood Pressure 138/76 Blood Pressure [Left Arm] Blood Pressure Mean 96 Blood Pressure Mean [Left Arm] Pulse Oximetry 96 Oxygen Delivery Method Sepsis Recent Fever Within 48 Hours Sepsis New/Unexplained Change in Mental Status Sepsis Action Taken by Assisted Medications Current Medication List: was personally reviewed by me Laboratory Data Attestation: I reviewed the patient's lab results. Result diagrams: 09/20/21 10:17 09/20/21 10:17 Lab Results 09/20/21 09/20/21 09/20/21 Range/Units 10:17 10:17 13:00 WBC 5.35 (4.8-10.8) K/uL RBC 4.48 (4.2-5.4) M/uL Hgb 12.8 (12.0-16.0) g/dL Hct 39.1 (37-47) % MCV 87.3 (80-100) fL MCH 28.6 (25-34) pg MCHC 32.7 (32-36) g/dL RDW Std Deviation 44.2 (36.4-46.3) fL RDW Coeff of Irena 13.8 (11.5-14.5) % Plt Count 267 (130-400) K/uL MPV 9.4 (7.4-10.4) fL Immature Gran % (Auto) 0.2 % Neut % (Auto) 59.5 % Lymph % (Auto) 26.5 % [place] % (Auto) 12.3 % Eos % (Auto) 1.1 % Baso % (Auto) 0.4 % Neut # (Auto) 3.18 (1.4-6.5) K/uL Lymph # (Auto) 1.42 (1.2-3.4) K/uL [place] # (Auto) 0.66 H (0.11-0.59) K/uL Eos # (Auto) 0.06 (0-0.5) K/uL Baso # (Auto) 0.02 (0-0.2) K/uL Immature Gran # (Auto) 0.01 (0.00-0.02) K/uL Sodium 136 (136-145) mmol/L Potassium 4.2 (3.5-5.1) mmol/L Chloride 102 (98-107) mmol/L Carbon Dioxide 27 (21-32) mmol/L Anion Gap 7.0 (3-11) BUN 22 H (7-18) mg/dl Creatinine 0.95 (0.6-1.2) mg/dl Est Cr Clr Drug Dosing 63.6 ml/min Est GFR ( Amer) 67.9 ml/min Est GFR (Non-Af Amer) 58.6 ml/min BUN/Creatinine Ratio 23.5 H (10-20) Glucose 110 H (70-99) mg/dl Calcium 9.3 (8.5-10.1) mg/dl SARS-CoV-2, RNA, NAAT NEGATIVE (NEGATIVE) Administered Medications Discontinued Medications Acetaminophen (Acetaminophen 500 Mg Tab) 1,000 mg PO NOW STA Stop: 09/20/21 10:06 Last Admin: 09/20/21 10:24 Dose: 1,000 mg Documented by: [id number] Lidocaine (Lidocaine 5% 1 Patch) 1 patch TD NOW STA Stop: 09/20/21 10:05 Last Admin: 09/20/21 10:24 Dose: 1 patch Documented by: [id number] Methylprednisolone (Methylprednisolone 125 Mg/2 Ml Vial) 60 mg IV NOW STA Stop: 09/20/21 10:05 Last Admin: 09/20/21 10:25 Dose: 60 mg Documented by: [id number] Morphine Sulfate (Morphine Sulfate 4 Mg/Ml 1 Ml Carp\Vial) 4 mg IV NOW STA Stop: 09/20/21 10:05 Last Admin: 09/20/21 10:24 Dose: 4 mg Documented by: [id number] Ondansetron HCl (Ondansetron Inj 2 Mg/Ml 2 Ml Vial) 4 mg IV NOW STA Stop: 09/20/21 10:20 Last Admin: 09/20/21 10:24 Dose: 4 mg Documented by: [id number] Ondansetron HCl (Ondansetron Inj 2 Mg/Ml 2 Ml Vial) Confirm Administered Dose 4 mg .ROUTE .STK-MED ONE Stop: 09/20/21 10:20 Last Admin: 09/20/21 10:24 Dose: Not Given Documented by: [id number] Imaging Data Radiologist's Impression: Lumbar Spine X-Ray 09/20/21 10:04 XR lumbar spine 2-3V CLINICAL HISTORY: R sided sciatic COMPARISON STUDY: Scoliosis series 01/01/2017. FINDINGS: Moderate to severe levoscoliosis of the lumbar spine centered at the L3 level. This remains unchanged. There are severe degenerative disc disease throughout the lumbar spine. This has progressed in the interval. The sacrum appears intact. No fracture or subluxation within the lumbar spine. There is straightening of the lumbar spine on the lateral view. Severe facet degenerative changes seen throughout the lumbar spine. IMPRESSION: 1. Severe degenerative changes throughout the lumbar spine which have progressed in the interval. 2. No acute fractures. 3. Moderate to severe levoscoliosis, unchanged. ACT 112: Negative or not required by law. Electronically signed by: Victor Manuel Keating M.D. 09/20/2021 12:15 PM Discharge Plan Visit Data Chief Complaint: Back Injury/Pain Stated Complaint: SEVERE BACK PAIN ED Provider: Sukumar Hernandez Discharge Problem: Sciatica, Back pain Patient Disposition: Admitted As Inpatient Forms Stand Alone Forms: [facility] Prescriptions Prescriptions: No Action valacyclovir 1 gram tablet 1,000 mg PO .COMPLEX PRN (Reason: hsv-1) Qty: 21 RF: 0 diclofenac sodium 50 mg tablet,delayed release (DR/EC) 50 mg PO BID Qty: 180 RF: 3 acetaminophen [Tylenol Arthritis Pain] 650 mg tablet extended release 1,300 mg PO BID RF: 0 metoprolol succinate 100 mg tablet extended release 24 hr 50 mg PO QAM Qty: 45 RF: 1 triamterene-hydrochlorothiazid 37.5-25 mg tablet 0.5 tab PO QAM Qty: 45 RF: 1 cholecalciferol (vitamin D3) 1,000 unit capsule 1,000 units PO BID Qty: 60 RF: 0 sennosides [Senokot] 8.6 mg Tablet 8.6 mg PO DAILY PRN (Reason: Constipation) RF: 0 clindamycin HCl 300 mg Capsule 600 mg PO UD PRN (Reason: pre dental) RF: 0 Pure Zzzs 2 tabs PO HS RF: 0 tramadol 50 mg tablet 50 mg PO BID PRN (Reason: pain) RF: 0 simvastatin 40 mg tablet 40 mg PO HS RF: 0 levothyroxine 125 mcg tablet 125 mcg PO DAILYBB RF: 0 omeprazole 20 mg capsule,delayed release(DR/EC) 20 mg PO DAILYBB RF: 0 furosemide 20 mg tablet 20 mg PO DAILY PRN (Reason: Edema) RF: 0 metronidazole 0.75 % gel 1 applic topical QAM RF: 0 escitalopram oxalate 20 mg tablet 20 mg PO QAM RF: 0 Referrals Referrals: Alexandria Abrams MD [Primary Care Provider] - Discharge Problem: Sciatica Qualifiers: Laterality: right Qualified Code(s): M54.31 - Sciatica, right side Back pain Qualifiers: Back pain location: low back pain Chronicity: chronic Back pain laterality: midline Sciatica presence: with sciatica Sciatica laterality: sciatica of right side Qualified Code(s): M54.41 - Lumbago with sciatica, right side
[2021-09-20] MEDS ORDERED: LIDOCAINE 5% 1 PATCH TD STA (10:04)
[2021-09-20] MEDS ORDERED: MoRPHine SULFATE 4 MG/ML 1 ML CARP\\VIAL IV STA ×2 (10:04→16:06)
[2021-09-20] MEDS ORDERED: methylPREDNISolone 125 MG/2 ML VIAL IV STA (10:04)
[2021-09-20] MEDS ORDERED: ACETAMINOPHEN 500 MG TAB PO STA (10:05)
[2021-09-20] MEDS ORDERED: ONDANSETRON INJ 2 MG/ML 2 ML VIAL IV STA (10:19)
[2021-09-20] MEDS ORDERED: ONDANSETRON INJ 2 MG/ML 2 ML VIAL ONE (10:19)
[2021-09-20 10:24] LABS: Basophils # (auto) 0.02 K/uL (0-0.2); Basophils % (auto) 0.4 %; Eosinophils # (auto) 0.06 K/uL (0-0.5); Eosinophils % (auto) 1.1 %; Hematocrit (blood only) 39.1 % (37-47); Hemoglobin 12.8 g/dL (12.0-16.0); Immature Granulocytes # (auto) 0.01 K/uL (0.00-0.02); Immature Granulocytes % (auto) 0.2 %; Lymphocytes # (auto) 1.42 K/uL (1.2-3.4); Lymphocytes % (auto) 26.5 %; Mean Corpuscular Hemoglobin 28.6 pg (25-34); Mean Corpuscular Hgb Conc 32.7 g/dL (32-36); Mean Corpuscular Volume 87.3 fL (80-100); Mean Platelet Volume 9.4 fL (7.4-10.4); Monocytes # (auto) 0.66 K/uL (0.11-0.59); Monocytes % (auto) 12.3 %; Neutrophils # (auto) 3.18 K/uL (1.4-6.5); Neutrophils % (auto) 59.5 %; Platelet Count 267 K/uL (130-400); RDW Coefficient of Variation 13.8 % (11.5-14.5); RDW Standard Deviation 44.2 fL (36.4-46.3); Red Blood Count 4.48 M/uL (4.2-5.4); White Blood Count 5.35 K/uL (4.8-10.8)
[2021-09-20 10:41] LABS: BUN Creatinine Ratio 23.5 (10-20); Calcium 9.3 mg/dl (8.5-10.1); Creatinine Clr Calc Pharmacy 63.6 ml/min; Est GFR (African American) 67.9 ml/min; Est GFR (Non-African American) 58.6 ml/min; Potassium 4.2 mmol/L (3.5-5.1)
--- NOTE | 2021-09-20 12:16 | XRay Report ---
XR lumbar spine 2-3V CLINICAL HISTORY: R sided sciatic COMPARISON STUDY: Scoliosis series 01/01/2017. FINDINGS: Moderate to severe levoscoliosis of the lumbar spine centered at the L3 level. This remains unchanged. There are severe degenerative disc disease throughout the lumbar spine. This has progress ed in the interval. The sacrum appears intact. No fracture or subluxation within the lumbar spine. Th ere is straightening of the lumbar spine on the lateral view. Severe facet degenerative changes seen throughout the lumbar spine. IMPRESSION: 1. Severe degenerative changes throughout the lumbar spine which have progressed in the interval. 2. No acute fractures. 3. Moderate to severe levoscoliosis, unchanged. ACT 112: Negative or not required by law. Electronically signed by: Victor Manuel Keating M.D. 09/20/2021 12:15 PM
--- NOTE | 2021-09-20 16:19 | History & Physical Report ---
Date of Service September 20, 2021 Assessment & Plan (1) Neurogenic claudication due to lumbar spinal stenosis: Plan: Assessment lumbar spinal stenosis with spondylolisthesis and degenerative scoliosis. Plan at this time she has severe multilevel neuroforaminal and la teral recess stenosis at lumbar spine. Is most concentrated at the L3-L4 level. To adequately address her issue she would require a lumbar decompression with aggressive medial facetectomies and foraminotomies at L3-S1. In light of her progressive decline and loss of function recommending urgent procedure. History of Present Illness Chief Complaint: Chronic back and bilateral leg pain Primary Care Provider: Alexandria Abrams MD This is a 76-year-old female well-known to us that presents with progressive decline in status. She has pain at lumbosacral junction radiating predominately in the right buttock anterior thigh below her knee into her foot. Exacerbated with standing and walking. All activity is limited. She is failed extensive course of nonoperative care including epidural injections. Allergies Allergy/AdvReac Type Severity Reaction Status Date / Time Penicillins Allergy Intermediate Rash/joint Verified 09/20/21 11:11 stiffness Sulfa (Sulfonamide Allergy Intermediate Rash/joint Verified 09/20/21 11:11 Antibiotics) stiffness propoxyphene AdvReac Intermediate N/V Verified 09/20/21 11:11 Home Medications Medication Instructions Recorded Confirmed Type clindamycin HCl 300 mg capsule 600 mg PO UD PRN 08/05/18 09/20/21 History cholecalciferol (vitamin D3) 25 1,000 units PO BID #60 cap 05/10/19 09/20/21 Rx mcg (1,000 unit) capsule acetaminophen 650 mg 1,300 mg PO BID tab 07/10/19 09/20/21 History tablet,extended release (Tylenol Arthritis Pain) sennosides 8.6 mg tablet (Senokot) 8.6 mg PO DAILY PRN 10/20/19 09/20/21 History valacyclovir 1 gram tablet 1,000 mg PO .COMPLEX PRN #21 tab 11/01/20 09/20/21 Rx diclofenac sodium 50 mg 50 mg PO BID #180 tab 01/31/21 09/20/21 Rx tablet,delayed release Pure Zzzs 2 tabs PO HS 06/27/21 09/20/21 History metoprolol succinate 100 mg 50 mg PO QAM #45 tab 07/01/21 09/20/21 Rx tablet,extended release 24 hr triamterene 37.5 0.5 tab PO QAM #45 tab 07/01/21 09/20/21 Rx mg-hydrochlorothiazide 25 mg tablet escitalopram oxalate 20 mg tablet 20 mg PO QAM 09/20/21 09/20/21 History furosemide 20 mg tablet 20 mg PO DAILY PRN 09/20/21 09/20/21 History levothyroxine 125 mcg tablet 125 mcg PO DAILYBB 09/20/21 09/20/21 History metronidazole 0.75 % topical gel 1 applic TOPICAL QAM 09/20/21 09/20/21 History omeprazole 20 mg capsule,delayed 20 mg PO DAILYBB 09/20/21 09/20/21 History release simvastatin 40 mg tablet 40 mg PO HS 09/20/21 09/20/21 History tramadol 50 mg tablet 50 mg PO BID PRN 09/20/21 09/20/21 History Past Med/Surg History Medical History Anxiety and depression Back pain, chronic DJD (degenerative joint disease) GERD (gastroesophageal reflux disease) controlled Hx of melanoma of skin Hyperlipidemia Hypertension Hypothyroidism Incontinence of urine urgency and incontinence especially in the morning Obesity Osteoarthritis Rosacea Scoliosis Spinal stenosis Surgical History H/O knee surgery Right knee revision History of bilateral tubal ligation History of blepharoplasty History of carpal tunnel release of both wrists History of colonoscopy History of foot surgery Left hammertoe History of tonsillectomy History of total knee replacement R/L Hx of melanoma excision Family History Grandmother No problems noted. Father Family history of diabetes mellitus Hypertension Mother Stomach cancer Family history of reaction to anesthesia SEVERE PONV Hypertension Sister Vaginal cancer Grandmother (Paternal) Family history of diabetes mellitus Denies family history of Ovarian cancer Prostate cancer Myocardial infarction Breast cancer Colorectal cancer Social History Smoking Status: Never smoker Second Hand Exposure: Yes (IN THE PAST); Hx Alcohol Use: No Hx Substance Use: No Preferred Language: Vietnamese Communication Ability: Effective Visual Impairment: No Limitations Hearing Ability: Normal Feed Handler Required: No Beliefs That Will Affect Care: None marital status: / Current Living Situation: Alone current occupational status: retired Feels Safe at Home: Yes caffeine: Yes Dental Care, Regularly: Yes Physical Activity Frequency: Does not Exercise Seatbelt Use: always Sunscreen Use: Yes Assistive Devices: Cane and Glasses Physical Exam Physical Exam: Patient walks with marked antalgic gait favoring the right leg. She exhibits breakaway weakness in the right quads greater than the left. Plantar flexion dorsiflexion. Be intact. Results & Data ([facility]) Vital Signs (Past 12 Hours) Vital Signs Temp Pulse Pulse Resp BP BP Pulse Ox 09/20/21 14:00 67 16 138/76 96 09/20/21 13:30 67 15 139/77 97 09/20/21 13:00 69 20 147/102 H 97 09/20/21 12:30 73 19 163/101 H 98 09/20/21 12:12 84 14 143/88 H 98 09/20/21 11:00 64 13 143/88 H 99 09/20/21 10:44 62 17 99 09/20/21 10:31 68 20 171/93 H 98 09/20/21 10:30 65 20 97 09/20/21 09:36 36.3 C L 95 H 19 201/78 H 97 Code Status & VTE Plan VTE Prophylaxis Plan VTE Prophylaxis will be ordered: Yes
[2021-09-20] MEDS ORDERED: METOCLOPRAMIDE HCL INJ 5 MG/ML 2 ML VIAL IV PRN (18:27)
[2021-09-20] MEDS ORDERED: ALUMINUM/MAGNESIUM SUSP 30 ML UDC PO PRN (18:27)
[2021-09-20] MEDS ORDERED: ONDANSETRON 4 MG OD TAB PO PRN (18:27)
[2021-09-20] MEDS ORDERED: FUROSEMIDE 20 MG TAB PO PRN (18:27)
[2021-09-20] MEDS ORDERED: ACETAMINOPHEN 500 MG TAB PO PRN (18:27)
[2021-09-20] MEDS ORDERED: HYDROmorphone INJ 0.5 MG/0.5 ML SYR IV PRN (18:27)
[2021-09-20] MEDS ORDERED: MAGNESIUM HYDROXIDE SUSP 30 ML UDC PO PRN (18:27)
[2021-09-20] MEDS: LACTATED RINGER'S 1,000 ML IV SCH (18:27)
[2021-09-20] MEDS ORDERED: LORazepam 0.5 MG/1 ML VIAL IV PRN (18:27)
[2021-09-20] MEDS ORDERED: PROMETHAZINE HCL 12.5 MG in SODIUM CHLORIDE 0.9% 50 ML IV PRN (18:27)
[2021-09-20] MEDS ORDERED: ONDANSETRON INJ 2 MG/ML 2 ML VIAL IV PRN (18:27)
[2021-09-20] MEDS ORDERED: ACETAMINOPHEN 1,000 MG/100 ML VIAL IV PRN (18:27)
[2021-09-20] MEDS ORDERED: NALOXONE HCL 0.4 MG/1 ML VIAL/CARP IV PRN (18:27)
[2021-09-20] MEDS ORDERED: LORazepam 0.5 MG TAB PO PRN (18:27)
[2021-09-20] MEDS ORDERED: diphenhydrAMINE Capsule 25 MG CAP PO PRN (18:27)
[2021-09-20] MEDS ORDERED: hydrOXYzine HCl 25 MG TAB PO PRN (18:27)
[2021-09-20] MEDS ORDERED: INFLUENZA VACCINE HIGH DOSE PF 65+ 0.7 ML SYR IM ONE (18:48)
[2021-09-20] MEDS: SIMVASTATIN 40 MG TAB PO SCH (21:37)
[2021-09-20] MEDS: CHOLECALCIFEROL 1,000 UNITS 25 MCG TAB PO SCH (21:38)
[2021-09-20] MEDS: HYDROmorphone INJ 1 MG/ML SYRINGE IV PRN (21:40)
[2021-09-21] MEDS: LEVOTHYROXINE SODIUM 125 MCG TABLET PO SCH (05:54)
[2021-09-21] MEDS: PANTOprazole 40 MG TAB PO SCH (05:54)
[2021-09-21] MEDS ORDERED: CLINDAMYCIN 600 MG/54 ML BAG IV SCH (06:00)
[2021-09-21] MEDS: LACTATED RINGER'S 1,000 ML IV SCH ×2 (07:37→21:20)
[2021-09-21] MEDS: HYDROmorphone INJ 1 MG/ML SYRINGE IV PRN ×2 (07:42→20:55)
[2021-09-21] MEDS: ESCITALOPRAM OXALATE 20 MG TAB PO SCH (08:21)
[2021-09-21] MEDS: CHOLECALCIFEROL 1,000 UNITS 25 MCG TAB PO SCH ×2 (08:21→21:03)
[2021-09-21] MEDS: METOPROLOL SUCC 50MG EXT REL TAB PO SCH (08:22)
[2021-09-21] MEDS: TRIAMTERENE/HCTZ 37.5/25MG TAB PO SCH (08:23)
--- NOTE | 2021-09-21 10:23 | History & Physical Bridge Note ---
Date of Service September 21, 2021 History & Physical Bridge Note I have examined the patient, reviewed the History & Physical and in the interval since the performance of the History & Physical I have noted the following changes of clinical significance: no changes noted L3-S1 decompression fusion
--- NOTE | 2021-09-21 11:55 | Orthopedic Progress Note ---
Date of Service September 21, 2021 Assessment & Plan (1) Neurogenic claudication due to lumbar spinal stenosis: Plan: At this time we will obtain an updated MRI lumbar spine without worsening neural compression and preoperative planning. Hope to obtain authorization for surgery soon as today. We will plan for surgery Sunday. Admission and Anticipated Discharge Date Admission Date: September 20, 2021 Subjective Patient has markedly worsening right leg pain. Is causing marked inability to ambulate any distance. She notes significant weakness with standing and walking. Physical Exam Physical Exam: On exam she is in bed at this time. Has reasonable plantar flexion dorsiflexion Results & Data ([facility]) Vital Signs (Past 12 Hours) Vital Signs Temp Pulse Resp BP Pulse Ox 09/21/21 07:39 36.6 C 57 L 18 155/72 H 94
--- NOTE | 2021-09-21 14:18 | Magnetic Resonance Report ---
MRI OF THE LUMBAR SPINE WITHOUT CONTRAST CLINICAL HISTORY: Right leg pain. COMPARISON STUDY: Lumbar spine radiographs September 20, 2021 TECHNIQUE: Utilizing a 1.5 Nishi magnet and dedicated coil, multiplanar, multiecho imaging of the [facility] spine was performed without IV contrast. FINDINGS: For purposes of numbering on this exam, the L5-S1 disc space is assigned to axial image 16 of 20 of the lower axial sequences. There is moderate to severe levoscoliosis of lumbar spine. There is mild anterolisthesis of L3 on L4. No acute lumbar spine fracture is noted. No intracanalicular mas s or fluid collection is present. No suspicious marrow replacement is present. Paravertebral soft tis sues are unremarkable. There is severe multilevel facet arthrosis and moderate to severe multilevel d egenerative disc disease within the lumbar spine as well as the lower thoracic spine. T10-T11: Disc bulge is noted. This results in mild to moderate central canal stenosis. There is also probable moderate bilateral neural foraminal stenosis. T11-T12: Disc space narrowing with disc bulge is noted. There is mild to moderate central canal steno sis. Severe left neural foraminal stenosis is noted. T12-L1: There is disc bulge. Mild to moderate central canal stenosis is present. There is severe left neural foraminal stenosis. Mild right neural foraminal narrowing is present. L1-2: There is disc bulge with ligamentous hypertrophy and facet arthrosis. Moderate to severe centra l canal stenosis is noted. Patent AP diameter of the canal is 4.5 mm. There is moderate narrowing of both lateral recesses and severe bilateral neural foraminal stenosis. L2-3: Disc space narrowing is noted with disc bulge, ligamentous hypertrophy and facet arthrosis. The re is moderate central canal stenosis. There is mild bilateral neural foraminal stenosis. L3-4: Grade one anterolisthesis is noted. There is disc space narrowing with disc bulge, ligamentous hypertrophy and facet arthrosis. There is moderate to severe central canal stenosis. Patent AP diamet er of the talus 4.5 mm. Severe right and mild left neural foraminal stenosis is present. L4-5: Disc space narrowing is noted with disc bulge, ligamentous hypertrophy and facet arthrosis. The re is mild central canal stenosis. Severe bilateral neural foraminal stenosis is present. L5-S1: There is disc space narrowing. Facet arthrosis is present. Central canal is patent. There is s evere left neural foraminal stenosis. IMPRESSION: 1. Severe multilevel degenerative changes throughout the lumbar spine, as described above. Moderate t o severe multilevel central canal stenosis and severe multilevel neural foraminal stenosis. 2. Moderate to severe levoscoliosis of the lumbar spine. 3. No acute lumbar spine fracture. ACT 112: Negative or not required by law. Electronically signed by: Cash Garces M.D. 09/21/2021 2:17 PM
[2021-09-21] MEDS ORDERED: cloNIDine HCL 0.1 MG TAB PO PRN (15:39)
--- NOTE | 2021-09-21 15:42 | Hospitalist Consultation ---
Date of Consultation September 21, 2021 Assessment & Plan (1) Neurogenic claudication due to lumbar spinal stenosis: Patient with known spinal stenosis that has failed all conservative measures Plan is for surgical intervention as patient currently unable to ambulate/perform ADLs Given underlying history of HTN and HLD, will obtain an EKG, chest x-ray, and coagulation studies for optimal risk stratification. In addition, urinalysis will be added and if grossly infected, patient will be empirically treated given plan for surgical intervention (2) Cardiac murmur: New diagnosis. Since plan is for surgical intervention, will obtain an echocardiogram. (3) Hypertension: Continue metoprolol and Maxide as prior to hospitalization BP slightly accelerated (155/72) but likely pain induced prn clonidine with parameters (4) Depression: Continue Lexapro as prior to hospitalization (5) Anxiety: Continue Lexapro as prior to hospitalization (6) Hypothyroidism: Continue Synthroid (7) Hyperlipidemia: Continue Zocor Revised cardiac risk index is 0. At this time, no medical contraindi cations to proceed with discharge; however, would like to see her EKG, chest x- ray, urinalysis, and echocardiogram. To my knowledge, surgery will not happen until Sunday. We will continue to follow. Thank you for allowing me to participate in the care of this patient History of Present Illness Reason for Consultation: Medical management Attending Physician: Andres Black DO History of Present Illness Mrs. Ballard is a 76-year-old white female with a past medical history of chronic low back pain, hypothyroidism, hyperlipidemia, rosacea, hypertension, and melanoma. She was to have lumbar fusion in June for her chronic low back pain/spinal stenosis but unfortunately canceled this appointment. Over the past month, her low back pain has been progressively worse to the point where she is unable to ambulate. She denies paresthesias of the lower extremities or saddle anesthesias. No bowel or bladder incontinence. Presented to the ED and was subsequently hospitalized under Dr. Black service with plan for surgical intervention as patient unable to ambulate and perform activities of daily living. Currently her pain is controlled with Dilaudid. Denies fevers, chills, chest pain, shortness of breath, abdominal pain, nausea or vomiting. CBC and metabolic panel reviewed and essentially unremarkable. Patient is slightly hypertensive but this could be pain related. Denies a personal, and/or family history of DVT/PE/blood dyscrasia. Denies a past history of postoperative complications in the past. She lives in a one-story home with no steps going into the home. Her hope is to get back to home postoperatively. Allergies Allergy/AdvReac Type Severity Reaction Status Date / Time Penicillins Allergy Intermediate Rash/joint Verified 09/20/21 11:11 stiffness Sulfa (Sulfonamide Allergy Intermediate Rash/joint Verified 09/20/21 11:11 Antibiotics) stiffness propoxyphene AdvReac Intermediate N/V Verified 09/20/21 11:11 Home Medications Medication Instructions Recorded Confirmed Type clindamycin HCl 300 mg capsule 600 mg PO UD PRN 08/05/18 09/20/21 History cholecalciferol (vitamin D3) 25 1,000 units PO BID #60 cap 05/10/19 09/20/21 Rx mcg (1,000 unit) capsule acetaminophen 650 mg 1,300 mg PO BID tab 07/10/19 09/20/21 History tablet,extended release (Tylenol Arthritis Pain) sennosides 8.6 mg tablet (Senokot) 8.6 mg PO DAILY PRN 10/20/19 09/20/21 History valacyclovir 1 gram tablet 1,000 mg PO .COMPLEX PRN #21 tab 11/01/20 09/20/21 Rx diclofenac sodium 50 mg 50 mg PO BID #180 tab 01/31/21 09/20/21 Rx tablet,delayed release Pure Zzzs 2 tabs PO HS 06/27/21 09/20/21 History metoprolol succinate 100 mg 50 mg PO QAM #45 tab 07/01/21 09/20/21 Rx tablet,extended release 24 hr triamterene 37.5 0.5 tab PO QAM #45 tab 07/01/21 09/20/21 Rx mg-hydrochlorothiazide 25 mg tablet escitalopram oxalate 20 mg tablet 20 mg PO QAM 09/20/21 09/20/21 History furosemide 20 mg tablet 20 mg PO DAILY PRN 09/20/21 09/20/21 History levothyroxine 125 mcg tablet 125 mcg PO DAILYBB 09/20/21 09/20/21 History metronidazole 0.75 % topical gel 1 applic TOPICAL QAM 09/20/21 09/20/21 History omeprazole 20 mg capsule,delayed 20 mg PO DAILYBB 09/20/21 09/20/21 History release simvastatin 40 mg tablet 40 mg PO HS 09/20/21 09/20/21 History tramadol 50 mg tablet 50 mg PO BID PRN 09/20/21 09/20/21 History Patient History Medical History Anxiety and depression Back pain, chronic DJD (degenerative joint disease) GERD (gastroesophageal reflux disease) controlled Hx of melanoma of skin Hyperlipidemia Hypertension Hypothyroidism Incontinence of urine urgency and incontinence especially in the morning Obesity Osteoarthritis Rosacea Scoliosis Spinal stenosis Surgical History H/O knee surgery Right knee revision History of bilateral tubal ligation History of blepharoplasty History of carpal tunnel release of both wrists History of colonoscopy History of foot surgery Left hammertoe History of tonsillectomy History of total knee replacement R/L Hx of melanoma excision Family History Grandmother No problems noted. Father Family history of diabetes mellitus Hypertension Mother Stomach cancer Family history of reaction to anesthesia SEVERE PONV Hypertension Sister Vaginal cancer Grandmother (Paternal) Family history of diabetes mellitus Denies family history of Ovarian cancer Prostate cancer Myocardial infarction Breast cancer Colorectal cancer Social History Smoking Status: Never smoker Second Hand Exposure: Yes (IN THE PAST); Hx Alcohol Use: No Hx Substance Use: No Preferred Language: Setswana Communication Ability: Effective Visual Impairment: No Limitations Hearing Ability: Normal Ux Developer Designer Required: No Beliefs That Will Affect Care: None marital status: / Current Living Situation: Alone Current Living Situation Comment: lives in alf community current occupational status: retired Other Information That Helps Us Care for You: No Feels Safe at Home: Yes caffeine: Yes Dental Care, Regularly: Yes Physical Activity Frequency: Does not Exercise Seatbelt Use: always Sunscreen Use: Yes Assistive Devices: Walker Review of Systems Review of Systems: All systems reviewed and are unremarkable except as noted in HPI and below Denies fevers, chills, headache, nasal congestion, sore throat, cough, chest pain, shortness of breath, palpitations, orthopnea, PND, abdominal pain, nausea, vomiting, diarrhea, constipation, dysuria, hematuria, frequency, back pain, joint pain or swelling, easy bruising or bleeding, skin lesions or rashes. Physical Exam Physical Exam: General: Resting comfortably in her hosptial bed. NAD. HEENT: Head is AT/NC buccal mucosa is moist and pink Neck: No JVD. Negative hepatojugular reflex Cardiac: RRR with 2/6 ANTONIETA (patient without any known murmur) Lungs: CTA without W/R/R Abdomen: Normoactive X4. Soft and nontender in all quadrants. Extremities: No peripheral clubbing cyanosis or edema Neuro: A&O X4 cranial nerves II through XII are grossly intact no focal neuro deficits Skin: No obvious skin lesions or rashes Psych: Appropriate affect pleasant and cooperative Results & Data Results & Data ([facility]) Vital Signs (Past 12 Hours) Vital Signs Temp Pulse Resp BP Pulse Ox 09/21/21 07:39 36.6 C 57 L 18 155/72 H 94 Laboratory Results 09/20/21 10:17 09/20/21 10:17 PG Care Time/CCT Total # of Minutes Spent Total Time Spent with Patient: Total time spent is greater than 50% in coordination of care (as documented) at patient's floor/unit and/or counseling patient: Coding Level of Care Code 93158 Inpt Consult Level 5 Diagnoses Neurogenic claudication due to lumbar spinal stenosis M48.062 Cardiac murmur R01.1 Hypertension I10 Depression F32.9 Depression Type: major depressive disorder Anxiety F41.9 Hypothyroidism E03.9 Hyperlipidemia E78.2 Hyperlipidemia type: mixed hyperlipidemia (1) Depression Depression Type: major depressive disorder (2) Hyperlipidemia Hyperlipidemia type: mixed hyperlipidemia Qualified Code(s): E78.2 - Mixed hyperlipidemia
[2021-09-21 16:24] LABS: Appearance Urine Clear (Clear); Bacteria Urine Automated 1+ (Negative); Bilirubin Urine Negative (Negative); Blood Urine Negative (Negative); Color Urine Yellow; Epithelial Cell Urine Auto >30 /lpf (0-5); Glucose Urine UA Negative (Negative); Ketones Urine Negative (Negative); Leukocyte Esterase Urine 2+ (Negative); Nitrite Urine Negative (Negative); Protein Urine Negative (Negative); RBC Urine Automated 0-4 /hpf (0-4); Specific Gravity Urine 1.017 (1.000-1.030); Urobilinogen Urine Negative (Negative); pH Urine 6.5 (4.5-7.5)
[2021-09-21 16:26] LABS: Partial Thromboplastin Time 25.2 Seconds (21.0-31.0); Prothrombin Time 10.1 Seconds (9.0-12.0)
--- NOTE | 2021-09-21 18:47 | XRay Report ---
XR chest 2V PA/lateral HISTORY: Back pain. preop clearance COMPARISON: Chest 06/29/2021. FINDINGS: The lungs are clear. Cardiac silhouette is normal in size. No pleural effusions. No pneumot horax. Mild eventration of the right hemidiaphragm, unchanged. Mild degenerative changes within the t horacic spine IMPRESSION: No acute process. ACT 112: Negative or not required by law. Electronically signed by: Victor Manuel Keating M.D. 09/21/2021 6:45 PM
[2021-09-21] MEDS: SIMVASTATIN 40 MG TAB PO SCH (21:03)
[2021-09-22] MEDS: PANTOprazole 40 MG TAB PO SCH (06:05)
[2021-09-22] MEDS: LEVOTHYROXINE SODIUM 125 MCG TABLET PO SCH (06:05)
[2021-09-22 07:43] LABS: Basophils # (auto) 0.01 K/uL (0-0.2); Basophils % (auto) 0.2 %; Eosinophils # (auto) 0.06 K/uL (0-0.5); Eosinophils % (auto) 1.2 %; Hematocrit (blood only) 37.9 % (37-47); Hemoglobin 12.3 g/dL (12.0-16.0); Immature Granulocytes # (auto) 0.01 K/uL (0.00-0.02); Immature Granulocytes % (auto) 0.2 %; Lymphocytes # (auto) 1.55 K/uL (1.2-3.4); Lymphocytes % (auto) 30.9 %; Mean Corpuscular Hemoglobin 28.5 pg (25-34); Mean Corpuscular Hgb Conc 32.5 g/dL (32-36); Mean Corpuscular Volume 87.9 fL (80-100); Mean Platelet Volume 9.4 fL (7.4-10.4); Monocytes # (auto) 0.54 K/uL (0.11-0.59); Monocytes % (auto) 10.8 %; Neutrophils # (auto) 2.85 K/uL (1.4-6.5); Neutrophils % (auto) 56.7 %; Platelet Count 251 K/uL (130-400); RDW Coefficient of Variation 13.9 % (11.5-14.5); RDW Standard Deviation 44.7 fL (36.4-46.3); Red Blood Count 4.31 M/uL (4.2-5.4); White Blood Count 5.02 K/uL (4.8-10.8)
[2021-09-22 08:17] LABS: BUN Creatinine Ratio 29.2 (10-20); Calcium 9.4 mg/dl (8.5-10.1); Creatinine Clr Calc Pharmacy 78.5 ml/min; Est GFR (African American) 87.5 ml/min; Est GFR (Non-African American) 75.5 ml/min; Magnesium 2.1 mg/dl (1.8-2.4); Potassium 3.7 mmol/L (3.5-5.1)
[2021-09-22] MEDS: METOPROLOL SUCC 50MG EXT REL TAB PO SCH (08:58)
[2021-09-22] MEDS: CHOLECALCIFEROL 1,000 UNITS 25 MCG TAB PO SCH ×2 (08:58→20:00)
[2021-09-22] MEDS: ESCITALOPRAM OXALATE 20 MG TAB PO SCH (08:59)
--- NOTE | 2021-09-22 09:59 | Orthopedic Progress Note ---
Date of Service September 22, 2021 Assessment & Plan (1) Neurogenic claudication due to lumbar spinal stenosis: Plan: Assessment lumbar spinal stenosis with neurogenic claudication. Plan at this time I reviewed her updated MRI is clearly progressed as far as the degree of stenosis. It is significant from L1 to the sacrum. There is severe neuroforaminal disease. This point to make her n.p.o. after midnight we will plan for lumbar decompression fusion in the a.m. We may need to consider extending fusion L1. Admission and Anticipated Discharge Date Admission Date: September 20, 2021 Subjective Patient continues to have significant right leg radiculopathy and weakness with ambulation. She is anxiously awaiting surgery. Physical Exam Physical Exam: Patient is most comfortable lying supine. She continues to demonstrate reasonable plantar flexion dorsiflexion. Negative logroll. Sensory intact at this time. Results & Data ([facility]) Vital Signs (Past 12 Hours) Vital Signs Temp Pulse Resp BP BP Pulse Ox 09/22/21 08:24 36.8 C 58 L 18 157/84 H 97 09/21/21 22:31 36.8 C 74 18 136/69 93
[2021-09-22] MEDS: TRIAMTERENE/HCTZ 37.5/25MG TAB PO SCH (10:41)
--- NOTE | 2021-09-22 12:14 | XCELERA ---
[id number]
--- NOTE | 2021-09-22 12:25 | Electrocardiogram Report ---
Test Reason : Blood Pressure : / mmHG Vent. Rate : 079 BPM Atrial Rate : 079 BPM P-R Int : 180 ms QRS Dur : 082 ms QT Int : 386 ms P-R-T Axes : 060 -27 003 degrees QTc Int : 442 ms Normal sinus rhythm Minimal voltage criteria for LVH, may be normal variant Borderline ECG When compared with ECG of 29-JUN-2021 14:34, No significant change was found Confirmed by Bharat Carter ([id number]) on 09/22/2021 12:24:56 PM Referred By: REFERRED SELF Confirmed By:Brendan Carter
[2021-09-22] MEDS ORDERED: bisacodyL 10 MG SUPP PR PRN (14:04)
--- NOTE | 2021-09-22 14:18 | Hospitalist Progress Note ---
Date of Service September 22, 2021 Assessment & Plan (1) Neurogenic claudication due to lumbar spinal stenosis: Plan: Patient with known spinal stenosis that has failed all conservative measures Plan is for surgical intervention as patient currently unable to ambulat e/perform ADLs Given underlying history of HTN and HLD, updated EKG, chest x-ray, and coagulation studies for optimal risk stratification, along with urinalysis. All unremarkable Revised cardiac risk index is 0. At this time, no medical contraindications to proceed with discharge (2) Cardiac murmur: Plan: New diagnosis. echo done without significant abnormalities. (3) Hypertension: Plan: Continue metoprolol and Maxide as prior to hospitalization BP slightly accelerated (157/84) but likely pain induced prn clonidine with parameters (4) Depression: Plan: Continue Lexapro as prior to hospitalization (5) Anxiety: Plan: Continue Lexapro as prior to hospitalization (6) Hypothyroidism: Plan: Continue Synthroid (7) Hyperlipidemia: Plan: Continue Zocor Plan: will continue to review chart but would not plan to see patient until after surgery unless there is a problem. Please do not hesitate to reach out should a problem arise Admission and Anticipated Discharge Date Admission Date: September 20, 2021 Subjective Patient seen on daily rounds today. Vocalizes no significant complaints or concerns. Denies fevers, chills, chest pain, shortness of breath, abdominal pain, nausea or vomiting. Utilizing Tylenol for pain and reports that it is "controlled". Does not want to take anything stronger until "after surgery". Awaiting for prior authorization. Surgery on hold until at least tomorrow. Review of Systems Review of Systems: All systems reviewed and are unremarkable except as noted in HPI and below Denies fevers, chills, headache, nasal congestion, sore throat, cough, chest pa in, shortness of breath, palpitations, orthopnea, PND, abdominal pain, nausea, vomiting, diarrhea, constipation, dysuria, hematuria, frequency, back pain, joint pain or swelling, easy bruising or bleeding, skin lesions or rashes. Physical Exam Physical Exam: General: Resting comfortably in her hospital bed. NAD. HEENT: Head is AT/NC buccal mucosa is moist and pink Neck: No JVD. Negative hepatojugular reflex Cardiac: RRR with 1/6 ANTONIETA (patient without any known murmur) Lungs: CTA without W/R/R Abdomen: Normoactive X4. Soft and nontender in all quadrants. Extremities: No peripheral clubbing cyanosis or edema Neuro: A&O X4 cranial nerves II through XII are grossly intact no focal neuro deficits Skin: No obvious skin lesions or rashes Psych: Appropriate affect pleasant and cooperative Results & Data Results & Data ([facility]) Vital Signs (Past 12 Hours) Vital Signs Temp Pulse Resp BP Pulse Ox 09/22/21 08:24 36.8 C 58 L 18 157/84 H 97 Laboratory Results 09/22/21 07:24 09/22/21 07:24 Coagulopathy panel within normal limits Urinalysis: Not grossly infected CXR: No acute cardiopulmonary process EKG: Normal sinus rhythm. Rate 80 bpm. Left axis deviation with poor R wave progression but no acute ST/T wave changes. Echocardiogram with preserved EF of 50% without significant valvular disease PG Care Time/CCT Total # of Minutes Spent Total Time Spent with Patient: Total time spent is greater than 50% in coordination of care (as documented) at patient's floor/unit and/or counseling patient: Coding Level of Care Code 92903 Inpt Consult Level 3 Diagnoses Neurogenic claudication due to lumbar spinal stenosis M48.062 Cardiac murmur R01.1 Hypertension I10 Depression F32.9 Depression Type: major depressive disorder Anxiety F41.9 Hypothyroidism E03.9 Hyperlipidemia E78.2 Hyperlipidemia type: mixed hyperlipidemia (1) Depression Depression Type: major depressive disorder (2) Hyperlipidemia Hyperlipidemia type: mixed hyperlipidemia Qualified Code(s): E78.2 - Mixed hyperlipidemia
[2021-09-22] MEDS: HYDROmorphone INJ 1 MG/ML SYRINGE IV PRN (20:01)
[2021-09-22] MEDS: SIMVASTATIN 40 MG TAB PO SCH (20:02)
[2021-09-23] MEDS: LEVOTHYROXINE SODIUM 125 MCG TABLET PO SCH (05:46)
[2021-09-23] MEDS: PANTOprazole 40 MG TAB PO SCH (05:46)
[2021-09-23] MEDS: TRIAMTERENE/HCTZ 37.5/25MG TAB PO SCH (08:39)
[2021-09-23] MEDS: traMADol HCL 50 MG TABLET PO PRN (08:40)
[2021-09-23] MEDS: ESCITALOPRAM OXALATE 20 MG TAB PO SCH (08:40)
[2021-09-23] MEDS: METOPROLOL SUCC 50MG EXT REL TAB PO SCH (08:40)
[2021-09-23] MEDS: CHOLECALCIFEROL 1,000 UNITS 25 MCG TAB PO SCH ×2 (08:40→21:48)
[2021-09-23] MEDS ORDERED: BUPIVACAINE 0.5 % 5 MG/1 ML MPF 30ML VIAL ONE (10:44)
[2021-09-23] MEDS ORDERED: EPINEPHrine INJ 1 MG/ML AMP ONE (10:44)
[2021-09-23] MEDS ORDERED: HYDROmorphone INJ 1 MG/ML SYRINGE IV PRN ×2 (11:02→15:44)
[2021-09-23] MEDS ORDERED: ATROPINE SULFATE 0.1 MG/ML 10ML SYR IV PRN (11:02)
[2021-09-23] MEDS ORDERED: ONDANSETRON INJ 2 MG/ML 2 ML VIAL IV PRN ×2 (11:02→15:44)
[2021-09-23] MEDS ORDERED: ePHEDrine sulfate 50 MG/ML AMP IV PRN (11:02)
--- NOTE | 2021-09-23 11:02 | Anesthesiology Consultation ---
Date of Service September 23, 2021 Assessment & Plan (1) Encounter for pre-operative examination: Chart Review Chart Review: Acceptable Risk for Surgery Consults Requested none ASA ASA2 Proposed Anesthesia Anesthesia Type: General Risk / Benefits Reviewed With: PT / POA / Parent / Guardian, Accepts Plan and Informed Consent Obtained History Surgery Operation Date: 09/21/21 08:50 Proposed Procedures p L3-S1 Decompression Fusion, Spinal Cord Monitoring - Andres Black DO Operation Date: 09/23/21 11:00 Proposed Procedures p L3-L5 Decompression Fusion, Spinal Cord Monitoring - Andres Black DO Height/Weight Height: 5 ft 6 in Weight: 108 kg Allergies Allergy/AdvReac Type Severity Reaction Status Date / Time Penicillins Allergy Intermediate Rash/joint Verified 09/20/21 11:11 stiffness Sulfa (Sulfonamide Allergy Intermediate Rash/joint Verified 09/20/21 11:11 Antibiotics) stiffness propoxyphene AdvReac Intermediate N/V Verified 09/20/21 11:11 Medications Home Medications Medication Instructions Recorded Confirmed Last Taken clindamycin HCl 300 mg capsule 600 mg PO UD PRN 08/05/18 09/20/21 Unknown cholecalciferol (vitamin D3) 25 1,000 units PO BID #60 cap 05/10/19 09/20/21 09/20/21 mcg (1,000 unit) capsule acetaminophen 650 mg 1,300 mg PO BID tab 07/10/19 09/20/21 09/20/21 tablet,extended release (Tylenol Arthritis Pain) sennosides 8.6 mg tablet (Senokot) 8.6 mg PO DAILY PRN 10/20/19 09/20/21 11/03/19 21:00 valacyclovir 1 gram tablet 1,000 mg PO .COMPLEX PRN #21 tab 11/01/20 09/20/21 Unknown diclofenac sodium 50 mg 50 mg PO BID #180 tab 01/31/21 09/20/21 09/15/21 tablet,delayed release Pure Zzzs 2 tabs PO HS 06/27/21 09/20/21 09/19/21 metoprolol succinate 100 mg 50 mg PO QAM #45 tab 07/01/21 09/20/21 09/20/21 tablet,extended release 24 hr triamterene 37.5 0.5 tab PO QAM #45 tab 0909/20/21 09/20/21 mg-hydrochlorothiazide 25 mg tablet escitalopram oxalate 20 mg tablet 20 mg PO QAM 09/20/21 09/20/21 09/20/21 furosemide 20 mg tablet 20 mg PO DAILY PRN 09/20/21 09/20/21 Unknown levothyroxine 125 mcg tablet 125 mcg PO DAILYBB 09/20/21 09/20/21 09/20/21 metronidazole 0.75 % topical gel 1 applic TOPICAL QAM 09/20/21 09/20/21 09/20/21 omeprazole 20 mg capsule,delayed 20 mg PO DAILYBB 09/20/21 09/20/21 09/20/21 release simvastatin 40 mg tablet 40 mg PO HS 09/20/21 09/20/21 09/19/21 tramadol 50 mg tablet 50 mg PO BID PRN 09/20/21 09/20/21 09/20/21 Active Medications Generic Name Dose Route Start Last Admin Trade Name Freq PRN Reason Stop Dose Admin Acetaminophen 1,000 mg 09/20/21 18:27 09/22/21 10:45 Acetaminophen 500 Mg Tab PO 10/20/21 18:26 1,000 mg Q8H PRN Administration MILD Pain Scale 1,2,3 & Pre PT Escitalopram Oxalate 20 mg 09/21/21 09:00 09/23/21 08:40 Escitalopram Oxalate 20 Mg Tab PO 10/21/21 08:59 20 mg QAM ORION Administration Hydromorphone HCl 1 mg 09/20/21 18:27 09/22/21 20:01 Hydromorphone Inj 1 Mg/Ml Syringe IV 10/04/21 18:26 1 mg Q3H PRN Administration severe pain (scale 7-10) Lactated Ringer's 1,000 mls @ 75 mls/hr 09/20/21 18:27 09/22/21 10:59 Lr IV 10/20/21 18:26 Infused .[id number] ORION Infusion Levothyroxine Sodium 125 mcg 09/21/21 06:30 09/23/21 05:46 Levothyroxine Sodium 125 Mcg Tablet PO 10/21/21 06:29 125 mcg DAILYBB ORION Administration Metoprolol Succinate 50 mg 09/21/21 09:00 09/23/21 08:40 Metoprolol Succ 50mg Ext Rel Tab PO 10/21/21 08:59 50 mg QAM ORION Administration Miscellaneous 1 ea 09/20/21 21:00 09/22/21 20:02 Remove Lidoderm Patch N/A 10/20/21 20:59 1 ea DAILY@2100 ORION Administration Pantoprazole Sodium 40 mg 09/21/21 06:30 09/23/21 05:46 Pantoprazole 40 Mg Tab PO 10/21/21 06:29 40 mg DAILYBB ORION Administration Simvastatin 40 mg 09/20/21 21:00 09/22/21 20:02 Simvastatin 40 Mg Tab PO 10/20/21 20:59 40 mg HS ORION Administration Tramadol HCl 50 - 100 mg 09/20/21 18:27 09/23/21 08:40 Tramadol Hcl 50 Mg Tablet PO 10/20/21 18:26 50 mg Q4H PRN Administration Moderate-Severe pain & Pre PT Triamterene/Hydrochlorothiazide 0.5 tab 09/21/21 09:00 09/23/21 08:39 Triamterene/Hctz 37.5/25mg Tab PO 10/21/21 08:59 0.5 tab QAM ORION Administration Vitamin D 1,000 units 09/20/21 21:00 09/23/21 08:40 Cholecalciferol 1,000 Units 25 Mcg Tab PO 10/20/21 20:59 1,000 units BID ORION Administration NPO Date Last Intake of Fluids: 09/20/21 Time Last Intake of Fluids: 23:59 Date Last Intake of Solids: 09/20/21 Time Last Intake of Solids: 23:59 Past Medical History Medical History Anxiety and depression Back pain, chronic DJD (degenerative joint disease) GERD (gastroesophageal reflux disease) controlled Hx of melanoma of skin Hyperlipidemia Hypertension Hypothyroidism Incontinence of urine urgency and incontinence especially in the morning Obesity Osteoarthritis Rosacea Scoliosis Spinal stenosis Exercise / Class Metabolic Activity III < 4 Walking/Shop/Light housework Past Family History Family History Grandmother No problems noted. Father Family history of diabetes mellitus Hypertension Mother Stomach cancer Family history of reaction to anesthesia SEVERE PONV Hypertension Sister Vaginal cancer Grandmother (Paternal) Family history of diabetes mellitus Denies family history of Ovarian cancer Prostate cancer Myocardial infarction Breast cancer Colorectal cancer Past Surgical History Surgical History H/O knee surgery Right knee revision History of bilateral tubal ligation History of blepharoplasty History of carpal tunnel release of both wrists History of colonoscopy History of foot surgery Left hammertoe History of tonsillectomy History of total knee replacement R/L Hx of melanoma excision Past Anesthesia History No Hx of Anesthesia Complications and No Family Hx of Anesthesia Complications History of PONV No Hx of PONV and No Hx of Motion Sickness Social History Smoking Status: Never smoker Hx Alcohol Use: No Alcohol type: beer, wine and hard liquor alcohol intake frequency: holidays/special occasions only Hx Substance Use: No substance use type: does not use Physical Exam Vital Signs Last Vital Signs Temp 98.8 F 09/23/21 08:35 Pulse 81 09/23/21 08:35 Resp 18 09/23/21 08:35 BP 158/84 H 09/23/21 08:35 Pulse Ox 95 09/23/21 08:35 ENMT Mouth: no dentition abnormality Thyromental Distance: > or= 3.5 Finger Breadths Mallampati Class: II Neck normal visual inspection Respiratory normal respiratory effort Auscultation: lungs clear to auscultation bilaterally Cardiovascular Rate/Rhythm: regular rate and regular rhythm Testing Laboratory Results 09/22/21 07:24 09/22/21 07:24 PT 10.1 Seconds (9.0-12.0) 09/21/21 15:43 INR 1.0 (0.9-1.1) 09/21/21 15:43 APTT 25.2 Seconds (21.0-31.0) 09/21/21 15:43 Urine Color Yellow 09/21/21 16:05 Urine Appearance Clear (Clear) 09/21/21 16:05 Urine pH 6.5 (4.5-7.5) 09/21/21 16:05 Ur Specific Ponce 1.017 (1.000-1.030) 09/21/21 16:05 Urine Protein Negative (Negative) 09/21/21 16:05 Urine Glucose (UA) Negative (Negative) 09/21/21 16:05 Urine Ketones Negative (Negative) 09/21/21 16:05 Urine Nitrite Negative (Negative) 09/21/21 16:05 Ur Leukocyte Esterase 2+ (Negative) H 09/21/21 16:05 Urine WBC (Auto) 10-30 /hpf (0-5) H 09/21/21 16:05 Urine RBC (Auto) 0-4 /hpf (0-4) 09/21/21 16:05 U Hyaline Cast (Auto) 1-5 /lpf (0-5) 09/21/21 16:05 U Epithel Cells (Auto) >30 /lpf (0-5) H 09/21/21 16:05 Urine Bacteria (Auto) 1+ (Negative) H 09/21/21 16:05 Blood Type A Positive 09/22/21 07:24 Antibody Screen NEGATIVE 09/22/21 07:24 09/21/21 16:05 Urine Culture - Final Urine,Clean Catch Three types or organisms present, all moderate counts probable skin buddy. No further identifications or sensitivities to follow.
--- NOTE | 2021-09-23 11:18 | History & Physical Bridge Note ---
Date of Service September 23, 2021 History & Physical Bridge Note I have examined the patient, reviewed the History & Physical and in the interval since the performance of the History & Physical I have noted the following changes of clinical significance: no changes noted Lumbar decompression fusion L3-S1 possible L1-L2 L2-L3
[2021-09-23] MEDS ORDERED: FLOSEAL HEMOSTATIC MATRIX 10ML TOP ONE (12:23)
--- NOTE | 2021-09-23 14:23 | Operative Report ---
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 #2 posterior spinal fusion L2-S1. #3 placement p osterior segmental instrumentation L2-S1. #4 interbody fusion L5-S1. #5 placement of peek cage 10 x 22 mm at L5-S1. #6 placement locally harvested morselized autograft in the posterior gutters. #7 placement infuse collagen sponge and master graft in the posterior lateral gutters and I factor and interbody space. Surgeon Andres Black, DO Asian Studies Program Chair Ty Arana Estimated Blood Loss 200 Findings See Below Patient is 5 foot 6 inches tall weighing 108 kg with a BMI in excess of 38. The patient's body habitus did contribute to significant technical difficulty requiring her deepest retractors longus instruments in order to perform her p rocedure. This had at least 50% increased operative time. Specimens None Indications This is a 76-year-old female that presents with progressive decline in function secondary to lower GI claudication is here for urgent decompression fusion. Description of Procedure Patient was met with identified informed consent obtained. Patient was then taken to the operative suite underwent intubation placed in a prone position the Hari table atop Aubrey frame. All bony prominences well-padded eyes inspected to ensure no external pressure placed upon the. This point the lumbar spine was prepped and draped in a sterile fashion. Sharp dissection with the assistance of Bovie cautery was performed down to and exposing the lamina and transverse processes of L2 L3-L4-L5 and the sacral ala bilaterally. From caudal to cephalad fashion complete laminectomy of L5 L4 L3 and L2 was performed including bilateral medial facetectomies and foraminotomies. Secondary to her bone quality and age I did refrain from extending the fusion in a higher. Also noted significant adhesions of the bone to the dura secondary to severe inflammation most impressively at the L3-L4 region. After decompression pedicle screws were placed in L2 L3-L4-L5 and S1 levels bilaterally with assistance of fluoroscopy and appropriate sized luke contoured and placed. By way of a transforaminal portion left complete discectomy of 5 S1 was performed endplates curetted to subcortical bleeding bone and a 10 x 22 mm peek cage filled with I factor tapped in position. The rods were then locked into final position bilaterally. Transverse processes of L2 L3-L4-L5 and sacral ala burred to subcortical being bone. Infuse collagen sponge master graft local autograft was placed in the posterior gutters. I did place a small piece of DuraGen over the mid lumbar decompression at the area of significant bony adhesions prophylactically. MATT drain inserted. The incision was then closed with 1 Vicryl the fascia 2-0 Vicryl subcutaneously and 4 Monocryl for final skin closure. Steri-Strip sterile dressings placed. Patient waken taken to PACU stable condition. Please note spinal cord monitoring was utilized at the procedure no changes noted. Erma Crawford record was present at the entire surgery involved the patient positioning complex portions of the surgery and final skin closure. I attest to the content of the Intraoperative Record and any orders documented therein. Any exceptions are noted below.
[2021-09-23] MEDS: fentaNYL citrate 100 MCG/2 ML VIAL IV PRN ×2 (14:56→15:01)
--- NOTE | 2021-09-23 15:17 | Anesthesiology Progress Note ---
Date of Service September 23, 2021 Anesthesia Post Procedure Vital Signs Vital Signs: Temp Pulse Pulse Resp BP BP Pulse Ox 09/23/21 15:15 85 16 145/72 H 96 09/23/21 15:05 75 16 142/75 H 96 09/23/21 14:55 80 16 138/80 100 09/23/21 14:47 97.9 F 82 16 146/79 H 99 09/23/21 10:43 98.8 F 83 18 166/92 H 100 09/23/21 08:35 98.8 F 81 18 158/84 H 95 09/22/21 21:44 98.4 F 69 16 129/74 95 Pain Intensity Back: Pain Intensity: 8 Transfer of Care Handoff Completed per policy Notes Mental Status: alert / awake / arousable and participated in evaluation Patient Amnestic to Procedure: Yes Nausea / Vomiting: adequately controlled Pain: adequately controlled Airway Patency, RR, SpO2: stable & adequate BP & HR: stable & adequate Hydration State: stable & adequate Anesthetic Complications: no major complications apparent and Pt Satisfied with anesthetic care
--- NOTE | 2021-09-23 15:21 | Fluoroscopy Report ---
FL lumbar spine 2-3V CLINICAL HISTORY: L3-5 D/F/I. Status post spine fusion COMPARISON STUDY: 09/20/2021 FLUOROSCOPY TIME: 53 seconds. FLUOROSCOPIC IMAGES: 4 FINDINGS: The patient is status post interpedicular screw and luke fixation from L2 through S1. There is a levoscoliotic curve of the lumbar spine. No acute osseous pathology is seen. IMPRESSION: Status post internal fixation. ACT 112: Negative or not required by law. Electronically signed by: Raheel Rivera M.D. 09/23/2021 3:20 PM
[2021-09-23] MEDS ORDERED: METOCLOPRAMIDE HCL INJ 5 MG/ML 2 ML VIAL IV PRN (15:44)
[2021-09-23] MEDS ORDERED: DO NOT ADMINISTER PNEUMOCOCCAL VACCINE PRN (15:44)
[2021-09-23] MEDS ORDERED: LORazepam 0.5 MG/1 ML VIAL IV PRN (15:44)
[2021-09-23] MEDS ORDERED: DO NOT ADMINISTER FLU VACCINE PRN (15:44)
[2021-09-23] MEDS ORDERED: LORazepam 0.5 MG TAB PO PRN (15:44)
[2021-09-23] MEDS ORDERED: ONDANSETRON 4 MG OD TAB PO PRN (15:44)
[2021-09-23] MEDS ORDERED: PROMETHAZINE HCL 12.5 MG in SODIUM CHLORIDE 0.9% 50 ML IV PRN (15:44)
[2021-09-23] MEDS ORDERED: FAMOTIDINE 20 MG TAB PO PRN (15:44)
[2021-09-23] MEDS ORDERED: ACETAMINOPHEN 500 MG TAB PO PRN (15:44)
[2021-09-23] MEDS ORDERED: MAGNESIUM HYDROXIDE SUSP 30 ML UDC PO PRN (15:44)
[2021-09-23] MEDS ORDERED: SOD PHOSPHATE/SOD BIPHOSPHATE ENEMA 132 ML BTL PR PRN (15:44)
[2021-09-23] MEDS ORDERED: HYDROmorphone INJ 0.5 MG/0.5 ML SYR IV PRN (15:44)
[2021-09-23] MEDS ORDERED: NALOXONE HCL 0.4 MG/1 ML VIAL/CARP IV PRN (15:44)
[2021-09-23] MEDS ORDERED: traMADol HCL 50 MG TABLET PO PRN (15:44)
[2021-09-23] MEDS ORDERED: oxyCODONE HCL IR 5 MG TAB (IMMEDIATE RELEASE) PO PRN (15:44)
[2021-09-23] MEDS ORDERED: hydrOXYzine HCl 25 MG TAB PO PRN (15:44)
[2021-09-23] MEDS ORDERED: bisacodyL 10 MG SUPP PR PRN (15:44)
[2021-09-23] MEDS ORDERED: ACETAMINOPHEN 1,000 MG/100 ML VIAL IV PRN (15:44)
[2021-09-23] MEDS ORDERED: ALUMINUM/MAGNESIUM SUSP 30 ML UDC PO PRN (15:44)
[2021-09-23] MEDS ORDERED: diphenhydrAMINE Capsule 25 MG CAP PO PRN (15:44)
[2021-09-23] MEDS: LACTATED RINGER'S 1,000 ML IV SCH ×2 (16:30→16:33)
[2021-09-23] MEDS: HYDROmorphone INJ 1 MG/ML SYRINGE IV PRN ×2 (17:41→22:32)
[2021-09-23] MEDS: DOCUSATE SODIUM/SENNA 50/8.6MG TAB PO SCH (21:47)
[2021-09-23] MEDS: SIMVASTATIN 40 MG TAB PO SCH (21:47)
[2021-09-23] MEDS: CLINDAMYCIN 600 MG in DEXTROSE 5% 50 ML IV SCH (22:17)
[2021-09-24] MEDS: LACTATED RINGER'S 1,000 ML IV SCH (01:53)
[2021-09-24] MEDS: traMADol HCL 50 MG TABLET PO PRN ×3 (03:00→21:07)
[2021-09-24] MEDS: CLINDAMYCIN 600 MG in DEXTROSE 5% 50 ML IV SCH (05:01)
[2021-09-24] MEDS: POLYETHYLENE (MIRALAX) 17 GM PACK PO SCH ×4 (05:08→23:52)
[2021-09-24] MEDS: LEVOTHYROXINE SODIUM 125 MCG TABLET PO SCH (05:55)
[2021-09-24] MEDS: PANTOprazole 40 MG TAB PO SCH (05:55)
[2021-09-24] MEDS ORDERED: CLINDAMYCIN 600 MG/54 ML BAG IV SCH (06:00)
[2021-09-24 07:53] LABS: Hematocrit (blood only) 31.7 % (37-47); Hemoglobin 10.5 g/dL (12.0-16.0); Immature Granulocytes # (auto) 0.01 K/uL (0.00-0.02); Immature Granulocytes % (auto) 0.1 %; Lymphocytes # (auto) 1.62 K/uL (1.2-3.4); Lymphocytes % (auto) 14.5 %; Mean Corpuscular Hemoglobin 29.2 pg (25-34); Mean Corpuscular Hgb Conc 33.1 g/dL (32-36); Mean Corpuscular Volume 88.1 fL (80-100); Mean Platelet Volume 9.7 fL (7.4-10.4); Monocytes # (auto) 1.41 K/uL (0.11-0.59); Monocytes % (auto) 12.6 %; Neutrophils # (auto) 8.11 K/uL (1.4-6.5); Neutrophils % (auto) 72.8 %; Platelet Count 238 K/uL (130-400); RDW Coefficient of Variation 14.1 % (11.5-14.5); RDW Standard Deviation 45.9 fL (36.4-46.3); White Blood Count 11.15 K/uL (4.8-10.8)
[2021-09-24 08:15] LABS: BUN Creatinine Ratio 21.5 (10-20); Calcium 8.4 mg/dl (8.5-10.1); Creatinine Clr Calc Pharmacy 72.8 ml/min; Est GFR (African American) 79.9 ml/min; Potassium 3.7 mmol/L (3.5-5.1)
[2021-09-24] MEDS: oxyCODONE HCL IR 5 MG TAB (IMMEDIATE RELEASE) PO PRN (08:43)
--- NOTE | 2021-09-24 09:25 | Orthopedic Progress Note ---
Date of Service September 24, 2021 Assessment & Plan (1) Neurogenic claudication due to lumbar spinal stenosis: Plan: At this time we will initiate physical therapy and occupational therapy as tolerated. If we progress throughout the weekend and discharge early next week. This may include possible rehab. Admission and Anticipated Discharge Date Admission Date: September 20, 2021 Subjective Patient's back pain is controlled right leg symptoms are markedly improved. Physical Exam Physical Exam: Patient is in bed at this time she does have good strength testing. Results & Data ([facility]) Vital Signs (Past 12 Hours) Vital Signs Temp Pulse Resp BP BP Pulse Ox 09/24/21 07:55 36.9 C 84 17 106/67 94 09/24/21 02:47 37.2 C 85 16 102/58 L 98 09/23/21 23:11 36.9 C 78 16 127/69 93
[2021-09-24] MEDS: CHOLECALCIFEROL 1,000 UNITS 25 MCG TAB PO SCH ×2 (09:26→21:09)
[2021-09-24] MEDS: ESCITALOPRAM OXALATE 20 MG TAB PO SCH (09:28)
[2021-09-24] MEDS: dexAMETHasone 6 MG in SYRINGE 0 ML IV SCH (09:28)
[2021-09-24] MEDS: TRIAMTERENE/HCTZ 37.5/25MG TAB PO SCH (09:29)
[2021-09-24] MEDS: METOPROLOL SUCC 50MG EXT REL TAB PO SCH (09:29)
--- NOTE | 2021-09-24 17:12 | Communication Note ---
Date of Service: September 24, 2021 Chart review done POD#1 today remains in house for pain control and PT/OT labs stable. VSS. Nursing reports no c.c will formally sign off on this patient but to not hesitate to reconsult should a problem arise. Thank you for allowing me to participate in her care.
[2021-09-24] MEDS: SIMVASTATIN 40 MG TAB PO SCH (21:09)
[2021-09-24] MEDS: DOCUSATE SODIUM/SENNA 50/8.6MG TAB PO SCH (21:09)
[2021-09-25] MEDS: LEVOTHYROXINE SODIUM 125 MCG TABLET PO SCH (06:01)
[2021-09-25] MEDS: POLYETHYLENE (MIRALAX) 17 GM PACK PO SCH ×4 (06:01→23:28)
[2021-09-25] MEDS: PANTOprazole 40 MG TAB PO SCH (06:01)
[2021-09-25] MEDS: dexAMETHasone 6 MG in SYRINGE 0 ML IV SCH (10:03)
[2021-09-25] MEDS: TRIAMTERENE/HCTZ 37.5/25MG TAB PO SCH (10:04)
[2021-09-25] MEDS: CHOLECALCIFEROL 1,000 UNITS 25 MCG TAB PO SCH ×2 (10:04→20:04)
[2021-09-25] MEDS: METOPROLOL SUCC 50MG EXT REL TAB PO SCH (10:05)
[2021-09-25] MEDS: ESCITALOPRAM OXALATE 20 MG TAB PO SCH (10:05)
[2021-09-25] MEDS: traMADol HCL 50 MG TABLET PO PRN (10:06)
--- NOTE | 2021-09-25 10:11 | Orthopedic Progress Note ---
Date of Service September 25, 2021 Assessment & Plan (1) Neurogenic claudication due to lumbar spinal stenosis: Plan: At this time we will continue physical therapy monitor MATT output. She ultimately may be a candidate to return home perhaps as soon as Sunday with home physical therapy which is available to her at her living environment. We will await assessment from occupational therapy physical therapy. Admission and Anticipated Discharge Date Admission Date: September 20, 2021 Subjective Patient complaining of back pain. Her leg symptoms are markedly improved. Physical Exam Physical Exam: On exam patient is ambulating the halls with a walker. She is with her physical therapist. She appears comfortable. Results & Data ([facility]) Vital Signs (Past 12 Hours) Vital Signs Temp Pulse Resp BP BP Pulse Ox 09/25/21 07:45 37.0 C 86 17 147/71 H 97 09/24/21 23:00 37.2 C 89 16 135/71 95
[2021-09-25] MEDS: DOCUSATE SODIUM/SENNA 50/8.6MG TAB PO SCH (20:03)
[2021-09-25] MEDS: SIMVASTATIN 40 MG TAB PO SCH (20:03)
[2021-09-25] MEDS: oxyCODONE HCL IR 5 MG TAB (IMMEDIATE RELEASE) PO PRN (20:04)
[2021-09-26] MEDS: LEVOTHYROXINE SODIUM 125 MCG TABLET PO SCH (05:50)
[2021-09-26] MEDS: POLYETHYLENE (MIRALAX) 17 GM PACK PO SCH ×2 (05:50→13:28)
[2021-09-26] MEDS: PANTOprazole 40 MG TAB PO SCH (05:50)
[2021-09-26] MEDS: dexAMETHasone 6 MG in SYRINGE 0 ML IV SCH (09:26)
[2021-09-26] MEDS: CHOLECALCIFEROL 1,000 UNITS 25 MCG TAB PO SCH (09:27)
[2021-09-26] MEDS: METOPROLOL SUCC 50MG EXT REL TAB PO SCH (09:28)
[2021-09-26] MEDS: TRIAMTERENE/HCTZ 37.5/25MG TAB PO SCH (09:28)
[2021-09-26] MEDS: ESCITALOPRAM OXALATE 20 MG TAB PO SCH (09:32)
[2021-09-26] MEDS: traMADol HCL 50 MG TABLET PO PRN ×2 (10:27→15:59)
--- NOTE | 2021-09-26 11:07 | Discharge Summary ---
Date of Service September 26, 2021 Admission HPI Per Admitting Provider This is a 76-year-old female well-known to us that presents with progressive decline in status. She has pain at lumbosacral junction radiating predominately in the right buttock anterior thigh below her knee into her foot. Exacerbated with standing and walking. All activity is limited. She is failed extensive course of nonoperative care including epidural injections. Principal Diagnosis Lumbar spinal stenosis with radiculopathy Discharge Data Allergies Allergy/AdvReac Type Severity Reaction Status Date / Time Penicillins Allergy Intermediate Rash/joint Verified 09/20/21 11:11 stiffness Sulfa (Sulfonamide Allergy Intermediate Rash/joint Verified 09/20/21 11:11 Antibiotics) stiffness propoxyphene AdvReac Intermediate N/V Verified 09/20/21 11:11 Consultations 09/20/21 12:56 ED Decision to Admit Stat 09/20/21 18:27 Consult Internal Medicine Routine Procedures Performed Operation Date: 09/21/21 08:50 <No data on this case meets the specified criteria> Operation Date: 09/23/21 11:00 Actual Procedures p L2-S1 Decompression Fusion, Spinal Cord Monitoring(Not Applicable) - Andres Black DO Ordered Studies 09/21/21 11:53 MR lumbar spine wo con Urgent 09/23/21 11:00 FL lumbar spine 2-3V Routine Hospital Course (1) Neurogenic claudication due to lumbar spinal stenosis: Patient was admitted with significant back and leg pain and underwent lumbar decompression fusion tolerated this well was taken to orthopedic for postoperative. Postop day 1 she progressed appropriately progressed to postop day #2 postop day #3 pain was well controlled MATT drain decreasing appropriately. Excellent strength testing. Subsequent discharge home. Discharge orders instructions from the chart for further review. Total Time Total Time Spent Total Time Spent (In Minutes): 20 minutes Discharge Plan Discharge Items Patient Disposition: Home - Self-Care Reason For Visit: BACK AND LEG PAIN Discharge Diagnosis: Lumbar spinal stenosis with neurogenic claudication Activity: As commented below Non-emergency contact: Primary Care Provider Call non-emergency contact if: you have any medication questions Follow-up/Referrals: Alexandria Abrams MD [Primary Care Provider] - Diet: Regular Addtl Attending Provider Instructions: ACTIVITY RECOMMENDATIONS: SELF CARE INSTRUCTIONS AFTER THORACIC/LUMBAR FUSIONS 1. You may walk to your tolerance. It is good exercise for your legs and back. Expect some back and intermittent leg aches and pains. 2. You may perform "counter-top" level activities (make a sandwich, jayne with a project, etc.). 3. No bending or lifting of more than 10 pounds or back twisting of any nature (roll like a log when turning in bed). 4. You may ride in a car for 20-30 minutes at a time. No driving until after your first visit with your doctor. 5. Frequent changes of position and restricting sitting to 30 minutes at a time will help limit the amount of back spasms and stiffness you may experience. 6. You may discontinue the use of ambulatory aids (cane, crutches, etc.) once your strength and confidence allow. 7. You may hospital unit coordinator the shower and let water strike your incision when you arrive home at least once daily. Do not take a tub bath, sit in a hot tub or go into a swimming pool until after your first recheck in the office. SPECIAL CARE INSTRUCTIONS: VERY IMPORTANT TO READ AND REVIEW A. Your surgical incision has been closed with a cosmetic suture under the skin that will dissolve in about 6 weeks. In 14 days, you can use a pair of clean scissors and cut the suture that is left outside of the skin at the ends of your incision. 1. The small skin tapes can be removed 7 days after surgery if they have not fallen off by that point. 2. You may keep the wound open to air as much as possible to promote healing after post-op day number 5 unless told otherwise by your doctor. 3. If you think the wound looks like it is becoming infected (redness or worsening drainage) and/or you are experiencing fever, chill or worsening back pain and muscle spasms, contact the office so that we may evaluate you as soon as possible. B. Complications are uncommon, but please contact us if you have any signs or symptoms of: 1. wound infection (fever higher than 102.5 degrees F, redness, separation of wound, drainage, or increasing pain from the incision) 2. blood clots in legs (pain, swelling, redness and warmth in legs) 3. urinary tract infection (fever higher than 102.5 degrees F, burning upon urination or increased frequency of urination) 4. nerve problems (inability to walk on your toes or heels, numbness, loss of bowel or bladder control) 5. any other symptoms that concern you C. Please call the office at if you have any concerns or questions about your operation or recovery. D. No smoking! Smoking drastically decreases the chance of a solid fusion. E. Do not take any anti-inflammatory medications (Indocin, Advil, Motrin, Aspirin, Naprosyn, etc.) as these may inhibit the chance of a solid fusion. Tylenol is okay to take for pain. MANAGING PAIN AFTER SPINAL SURGERY 1. Narcotic medication is intended for short-term use and will be provided for surgical pain. Surgical pain usually lasts for a period of 4-6 weeks. Narcotic medication includes Percocet, Vicodin, Darvocet, Tylenol #3 or Lortab. 2. Longer-term pain is more appropriately treated with non-narcotic medication such as Tylenol ES. 3. Muscle spasm is not appropriately treated with narcotics. Muscle relaxers such as Soma, Flexeril or Skelaxin can be used along with Tylenol ES. 4. Remember that we all live with some "aches and pains". This is not unusual or uncommon after an injury or as we get older. a. Back pain is expected and may include muscle spasms for 4 to 6 weeks after surgery. The pain should gradually improve. If the pain worsens for no apparent reason, please contact the office. b. Intermittent leg pain may also be experienced and should not be concerned about unless it worsens for no apparent reason. If so, please contact the office. 5. We will provide appropriate medication within the normal guidelines of their prescribed use. We will also be very cautious and aware of potential abuse and extended duration of patients' medication needs. a. Pain medications are for your comfort and to assist with sleep and rest so that the tissue can heal. They are not provided in order to return to normal activity and should not be used through the day. To do so or worsening pain at night can result from ongoing tissue damage and development of tolerance to the prescribed medicine. 6. Please allow 2-3 days to process refills. Prescriptions will not be mailed but must be picked up at the office. FOLLOW UP VISIT: Keep your scheduled follow-up appointment. Any questions, please call the office at . Pending Studies at Discharge: No Stand-Alone Forms: [facility], Smoking Cessation Medications and DC Order Prescriptions: New oxycodone 5 mg tablet 5 mg PO Q6H PRN (Reason: pain, severe) Qty: 30 RF: 0 tramadol 50 mg tablet 50 mg PO Q6H PRN (Reason: pain, moderate) Qty: 30 RF: 0 Continued valacyclovir 1 gram tablet 1,000 mg PO .COMPLEX PRN (Reason: hsv-1) Qty: 21 RF: 0 diclofenac sodium 50 mg tablet,delayed release (DR/EC) 50 mg PO BID Qty: 180 RF: 3 acetaminophen [Tylenol Arthritis Pain] 650 mg tablet extended release 1,300 mg PO BID RF: 0 metoprolol succinate 100 mg tablet extended release 24 hr 50 mg PO QAM Qty: 45 RF: 1 triamterene-hydrochlorothiazid 37.5-25 mg tablet 0.5 tab PO QAM Qty: 45 RF: 1 cholecalciferol (vitamin D3) 1,000 unit capsule 1,000 units PO BID Qty: 60 RF: 0 sennosides [Senokot] 8.6 mg Tablet 8.6 mg PO DAILY PRN (Reason: Constipation) RF: 0 clindamycin HCl 300 mg Capsule 600 mg PO UD PRN (Reason: pre dental) RF: 0 Pure Zzzs 2 tabs PO HS RF: 0 tramadol 50 mg tablet 50 mg PO BID PRN (Reason: pain) RF: 0 simvastatin 40 mg tablet 40 mg PO HS RF: 0 levothyroxine 125 mcg tablet 125 mcg PO DAILYBB RF: 0 omeprazole 20 mg capsule,delayed release(DR/EC) 20 mg PO DAILYBB RF: 0 furosemide 20 mg tablet 20 mg PO DAILY PRN (Reason: Edema) RF: 0 metronidazole 0.75 % gel 1 applic topical QAM RF: 0 escitalopram oxalate 20 mg tablet 20 mg PO QAM RF: 0 Discharge Orders: Discharge Order (Routine); Ordered 09/26/21 Ordered By: Andres Black Admission Data Admit Date/Time: 09/20/21 14:07 Attending Provider: Andres Black Admit Provider: Andres Black Primary Care Provider: Alexandria Abrams Other Providers: Beni Alfred ; Andres Black ; Darion Francis
== END 2021-09-26 16:30 | disposition home health service (06) | DRG 455 ==
LOC: ED 09:34 → 3N 14:07

== ENCOUNTER 2024-05-02 07:55 | Inpatient (IN) ==
--- NOTE | 2024-04-29 12:10 | Anesthesiology Consultation ---
Date of Service April 29, 2024 Assessment & Plan (1) Encounter for pre-operative examination: Chart Review Chart Review: Acceptable Risk for Surgery History Surgery Operation Date: 05/02/24 09:55 Proposed Procedures p T10-L1 Decompression and Fusion, Spinal Cord Monitoring - Andres Black DO Height/Weight Height: 5 ft 5 in Weight: 104.1 kg Allergies Allergy/AdvReac Type Severity Reaction Status Date / Time Penicillins Allergy Intermediate Rash/joint Verified 04/28/24 15:39 stiffness Sulfa (Sulfonamide Allergy Intermediate Rash/joint Verified 04/28/24 15:39 Antibiotics) stiffness propoxyphene AdvReac Intermediate N/V Verified 04/28/24 15:39 Medications Home Medications Medication Instructions Recorded Confirmed Last Taken clindamycin HCl 300 mg capsule 600 mg PO UD PRN pre dental 08/05/18 04/28/24 Unknown acetaminophen 650 mg 1,300 mg PO BID 07/10/19 04/28/24 01/14/24 tablet,extended release (Tylenol Arthritis Pain) diclofenac sodium 50 mg 50 mg PO BID #180 tabs 07/05/23 04/28/24 01/13/24 tablet,delayed release escitalopram oxalate 20 mg tablet 20 mg PO QAM #30 tabs 11/16/23 04/28/24 01/14/24 omeprazole 20 mg capsule,delayed 20 mg PO QAM #90 caps 11/16/23 04/28/24 01/14/24 release atorvastatin 40 mg tablet 40 mg PO QPM #90 tabs 12/11/23 04/28/24 01/13/24 levothyroxine 112 mcg tablet 112 mcg PO QAM #90 tabs 12/11/23 04/28/24 01/14/24 lisinopril 20 mg tablet 20 mg PO QAM 01/10/24 04/28/24 01/14/24 psyllium husk 3.4 gram/5.4 gram 1 tbsp PO DAILY PRN Constipation 02/04/24 04/28/24 Unknown oral powder (Metamucil) metoprolol succinate 100 mg 50 mg (1/2 x 100 mg) PO QAM #45 02/05/24 04/28/24 Unknown tablet,extended release 24 hr tabs betamethasone dipropionate 0.05 % 1 applic topical BID PRN Rash 04/21/24 04/28/24 Unknown topical ointment cholecalciferol (vitamin D3) 125 125 mcg PO BID 04/21/24 04/28/24 Unknown mcg (5,000 unit) tablet (Vitamin D3) furosemide 20 mg tablet 20 mg PO QAM PRN Edema 04/21/24 04/28/24 Unknown metronidazole 0.75 % topical gel 1 applic topical QAM 04/21/24 04/28/24 Unknown tramadol 50 mg tablet 50 mg PO UD PRN pain, moderate 04/21/24 04/28/24 Unknown valacyclovir 1 gram tablet 1,000 mg PO TID PRN hsv-1 04/21/24 04/28/24 Unknown Past Medical History Medical History UTI (urinary tract infection) Urinary symptom or sign Encounter for Medicare annual wellness exam Nausea and vomiting after administration of anesthetic agent years ago, no issues in recent years SOB (shortness of breath) on exertion still occurs Lower extremity edema med prn Urinary incontinence Cardiac murmur pt denies Hx of cold sores med prn Unsteady gait uses walker History of COVID-19 11/2022--mild symptoms, no symptoms now Rosacea DJD (degenerative joint disease) Scoliosis Osteoarthritis Incontinence of urine urgency and incontinence especially in the morning GERD (gastroesophageal reflux disease) controlled Past Family History Family History Grandmother No problems noted. Father Family history of diabetes mellitus Hypertension Mother Stomach cancer Family history of reaction to anesthesia SEVERE PONV Hypertension Sister Vaginal cancer Grandmother (Paternal) Family history of diabetes mellitus Denies family history of Ovarian cancer Prostate cancer Myocardial infarction Breast cancer Colorectal cancer Past Surgical History Surgical History Hx of cataract extraction bilat History of lumbar spinal fusion 09/23/21 @ [facility] Dr. Black L2-S1 History of partial hysterectomy 01/2023 @ [facility] [place] with bladder tack done at same time History of bladder suspension procedure 01/2023 @ [facility] [place]--with partial hysterectomy History of total right hip replacement 05/2022 History of total knee replacement R/L Hx of melanoma excision History of foot surgery Left hammertoe H/O knee surgery Right knee revision History of carpal tunnel release of both wrists History of bilateral tubal ligation History of colonoscopy History of tonsillectomy History of blepharoplasty bilat Social History Smoking Status: Never smoker Do You Dip or Chew Tobacco: No Hx Alcohol Use: No Alcohol type: beer alcohol intake frequency: other Alcohol Intake Frequency Comment: very rarely Hx Substance Use: No substance use type: does not use Testing Laboratory Results Laboratory Tests 04/17/24 10:04 Hgb 12.5 Plt Count 304 Potassium 4.5 Creatinine 1.07 Hemoglobin A1c 6.1 H Electrocardiogram Date: 04/25/24 Findings: + NSR @ (88) Echocardiogram Date: 09/22/21 EF: 55-60% LV Function: normal Valvular Disease: + no significant valvular disease
[2024-05-02] MEDS ORDERED: PROPOFOL IV EMULSION 10 MG/ML 20 ML VIAL IV ONE (08:10)
[2024-05-02] MEDS ORDERED: LIDOCAINE 2% 2 ML VIAL/AMP(20MG/ML) INFIL ONE (08:10)
[2024-05-02] MEDS ORDERED: fentaNYL citrate PF 100 MCG/2 ML VIAL ONE (08:10)
[2024-05-02] MEDS: LR 15ML/HR IV SCH (08:45)
[2024-05-02] MEDS: LR 60ML/HR IV SCH (08:45)
[2024-05-02] MEDS: VANCOMYCIN HCL 1,500 MG in SODIUM CHLORIDE 0.9% 500 ML IV SCH (08:47)
[2024-05-02] MEDS: GABAPENTIN 300 MG CAP PO SCH (08:47)
--- NOTE | 2024-05-02 09:18 | History & Physical Bridge Note ---
Date of Service May 02, 2024 History & Physical Bridge Note I have examined the patient, reviewed the History & Physical and in the interval since the performance of the History & Physical I have noted the following changes of clinical significance: no changes noted
--- NOTE | 2024-05-02 09:19 | History & Physical Report ---
Date of Service May 02, 2024 Assessment & Plan (1) Myelopathy concurrent with and due to spinal stenosis of thoracic region: Plan: T10-L2 decompression and fusion History of Present Illness Chief Complaint: Leg weakness and balance disturbance Primary Care Provider: Alexandria Abrams MD This is a 78-year-old female who presents with significant thoracic spinal stenosis and evidence of myelopathy and is here for surgical invention. Allergies Allergy/AdvReac Type Severity Reaction Status Date / Time Penicillins Allergy Intermediate Rash/joint Verified 05/02/24 08:48 stiffness Sulfa (Sulfonamide Allergy Intermediate Rash/joint Verified 05/02/24 08:48 Antibiotics) stiffness propoxyphene AdvReac Intermediate N/V Verified 05/02/24 08:48 Home Medications Medication Instructions Recorded Confirmed Type clindamycin HCl 300 mg capsule 600 mg PO UD PRN pre dental 08/05/18 05/02/24 History acetaminophen 650 mg 1,300 mg PO BID 07/10/19 05/02/24 History tablet,extended release (Tylenol Arthritis Pain) diclofenac sodium 50 mg 50 mg PO BID #180 tabs 07/05/23 05/02/24 Rx tablet,delayed release omeprazole 20 mg capsule,delayed 20 mg PO QAM #90 caps 11/16/23 05/02/24 Rx release atorvastatin 40 mg tablet 40 mg PO QPM #90 tabs 12/11/23 05/02/24 Rx levothyroxine 112 mcg tablet 112 mcg PO QAM #90 tabs 12/11/23 05/02/24 Rx lisinopril 20 mg tablet 20 mg PO QAM 01/10/24 05/02/24 History psyllium husk 3.4 gram/5.4 gram 1 tbsp PO DAILY PRN Constipation 02/04/24 05/02/24 History oral powder (Metamucil) betamethasone dipropionate 0.05 % 1 applic topical BID PRN Rash 04/21/24 05/02/24 History topical ointment cholecalciferol (vitamin D3) 125 125 mcg PO BID 04/21/24 05/02/24 History mcg (5,000 unit) tablet (Vitamin D3) furosemide 20 mg tablet 20 mg PO QAM PRN Edema 04/21/24 05/02/24 History metronidazole 0.75 % topical gel 1 applic topical QAM 04/21/24 05/02/24 History (Rosadan) tramadol 50 mg tablet 50 mg PO UD PRN pain, moderate 04/21/24 05/02/24 History valacyclovir 1 gram tablet 1,000 mg PO TID PRN hsv-1 04/21/24 05/02/24 History escitalopram oxalate 20 mg tablet 20 mg PO QAM 05/02/24 05/02/24 History (Lexapro) metoprolol succinate 100 mg 100 mg PO QAM 05/02/24 05/02/24 History tablet,extended release 24 hr Past Med/Surg History Problem List (Updated 05/02/24 @ 09:19 by Andres Black DO) Myelopathy concurrent with and due to spinal stenosis of thoracic region Preoperative cardiovascular examination PAC (premature atrial contraction) Atrial tachycardia, paroxysmal Obesity Anxiety and depression Elevated hemoglobin A1c Melena Blood in stool Stool incontinence Diarrhea Sore throat Incontinence Cystocele with first degree uterine prolapse Cardiac murmur Neurogenic claudication due to lumbar spinal stenosis Sciatica (Acute) Encounter for pre-operative examination History of squamous cell carcinoma History of basal cell carcinoma History of melanoma Acute sinusitis (Acute) Urinary incontinence (Chronic) Constipation (Chronic) Lower extremity edema (Chronic) Hammer toe of left foot (Chronic) HSV-1 infection (Chronic) Spinal stenosis (Acute) Hypothyroidism (Chronic) Hyperlipidemia (Chronic) Back pain, chronic (Chronic) Status post revision of total replacement of right knee Vaginal trauma (Acute) Rosacea (Chronic) Hypertension (Chronic) Head injury (Acute) Right knee injury (Acute) Fall (Acute) Right knee DJD (Acute 07/09/14) Medical History UTI (urinary tract infection) Urinary symptom or sign Encounter for Medicare annual wellness exam Nausea and vomiting after administration of anesthetic agent years ago, no issues in recent years SOB (shortness of breath) on exertion still occurs Lower extremity edema med prn Urinary incontinence Cardiac murmur pt denies Hx of cold sores med prn Unsteady gait uses walker History of COVID-19 11/2022--mild symptoms, no symptoms now Rosacea DJD (degenerative joint disease) Scoliosis Osteoarthritis Incontinence of urine urgency and incontinence especially in the morning GERD (gastroesophageal reflux disease) controlled Surgical History Hx of cataract extraction bilat History of lumbar spinal fusion 09/23/21 @ [facility] Dr. lBack L2-S1 History of partial hysterectomy 01/2023 @ [facility] [place] with bladder tack done at same time History of bladder suspension procedure 01/2023 @ [facility] [place]--with partial hysterectomy History of total right hip replacement 05/2022 History of total knee replacement R/L Hx of melanoma excision History of foot surgery Left hammertoe H/O knee surgery Right knee revision History of carpal tunnel release of both wrists History of bilateral tubal ligation History of colonoscopy History of tonsillectomy History of blepharoplasty bilat Family History Grandmother No problems noted. Father Family history of diabetes mellitus Hypertension Mother Stomach cancer Family history of reaction to anesthesia SEVERE PONV Hypertension Sister Vaginal cancer Grandmother (Paternal) Family history of diabetes mellitus Denies family history of Ovarian cancer Prostate cancer Myocardial infarction Breast cancer Colorectal cancer Social History Smoking Status: Never smoker Second Hand Exposure: Yes (hx); Do You Dip or Chew Tobacco: No; Tobacco Cessation Education Requested by Patient: No Hx Alcohol Use: No Hx Substance Use: No Preferred Language: Vietnamese Communication Ability: Effective Visual Impairment: Limited Hearing Ability: Normal 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 Beliefs That Will Affect Care: None marital status: / Current Living Situation: Alone Current Living Situation Comment: lives in skilled nursing community current occupational status: retired How many Children do You have: 2 Other Information That Helps Us Care for You: No Feels Safe at Home: Yes Safety Concerns: Feels Safe At This Time Childhood Exposure to Second-Hand Smoke: Yes Diet: regular caffeine: Yes during the past year weight has: remained stable Dental Care, Regularly: Yes Physical Activity Frequency: Does not Exercise Seatbelt Use: always Sunscreen Use: Yes Do you think of yourself as: straight/heterosexual Sexual Activity: has been sexually active, but not for at least 12 months Gender Identity: Female Assistive Devices: Glasses, Walker and Other Physical Exam Physical Exam: Patient is alert and oriented heart regular rhythm lungs clear lungs clear Results & Data Results & Data Vital Signs (Past 12 Hours) Vital Signs Temp Pulse Resp BP Pulse Ox O2 Del Method 05/02/24 08:57 36.8 C 71 18 143/62 H 97 Room Air 05/02/24 08:53 Room Air
[2024-05-02] MEDS ORDERED: DROPERIDOL 5 MG/2 ML VIAL ONE (09:36)
[2024-05-02] MEDS ORDERED: ATROPINE SULFATE 0.1 MG/ML 10ML SYR IV PRN (09:37)
[2024-05-02] MEDS ORDERED: PROMETHAZINE HCL 6.25 MG in SODIUM CHLORIDE 0.9% 50 ML IV PRN (09:37)
[2024-05-02] MEDS ORDERED: HYDROmorphone INJ 1 MG/ML SYRINGE IV PRN (09:37)
--- NOTE | 2024-05-02 09:39 | History & Physical Bridge Note ---
Date of Service May 02, 2024 History & Physical Bridge Note I have examined the patient, reviewed the History & Physical and in the interval since the performance of the History & Physical I have noted the following changes of clinical significance: no changes noted Decompresion and fusion T10-L1
[2024-05-02] MEDS: BUPIVACAINE/EPINEPHRINE 0.25% 1:200,000 30 ML VIAL ONE (10:23)
[2024-05-02] MEDS ORDERED: HYDROmorphone INJ 2 MG/ML SYR/VIAL ONE (10:24)
[2024-05-02] MEDS ORDERED: ROCURONIUM BROMIDE 10 MG/ML 5 ML VIAL IV ONE ×2 (10:24→10:28)
[2024-05-02] MEDS ORDERED: DEXAMETHASONE SOD INJ 4 MG/ML VIAL ONE (10:24)
[2024-05-02] MEDS ORDERED: ONDANSETRON INJ 2 MG/ML 2 ML VIAL ONE (10:24)
[2024-05-02] MEDS: FLOSEAL HEMOSTATIC MATRIX 10ML TOP ONE (11:30)
[2024-05-02] MEDS ORDERED: SUGAMMADEX SODIUM 200 MG/2 ML VIAL IV ONE (12:06)
[2024-05-02] MEDS: ceFAZolin 330 MG/ML 1 GM VIAL ONE (12:07)
--- NOTE | 2024-05-02 12:18 | Operative Report ---
Post Operative Report Pre & Post Diagnosis Operation Date: 05/02/24 09:35 Pre-Op Diagnosis: Myelopathy concurrent with and due to spinal stenosis of thoracic region Post-Op Diagnosis: Myelopathy concurrent with and due to spinal stenosis of thoracic region I identified the patient and participated in the time-out.: Yes Procedure Operation Date: 05/02/24 09:35 Actual Procedures #1 decompression with bilateral medial facetectomies T10-T11, T11-T12, T12-L1 and L1-L2. #2 posterior spinal fusion T10-L2. #3 placement posterior segmental instrumentation using Wei Creo rods and connectors T10-L1 with connectors at L2-L3. #4 placement locally harvested morselized autograft posterior gutters. #5 placement infuse collagen sponge combined with Koros bone graft the posterior gutters T10-L2. Surgeon Andres Black, DO Snuff Grinder Ty Arana Estimated Blood Loss 250 Findings See Below The patient is 5 foot 5 weighing 102 kg with a BMI in excess of 37. The patient's body habitus did contribute to significant technical difficulty with positioning exposure and the procedure itself and at least 50% increased operative time. Specimens None Indications This is a 78-year-old female who presents with above-mentioned diagnosis of failed course of nonoperative care is here for surgical invention. Description of Procedure Patient was met with identified informed consent obtained. Patient was then taken to the operative suite underwent patient placed in a prone position on the Hari table on top of the Aubrey frame. All bony promises well-padded eyes inspected to ensure no external pressure placed upon them. This point the thoracolumbar spine was prepped and draped in a sterile fashion. Sharp dissection with the assistance of Bovie cautery was then performed down to and exposing the lamina transverse processes of T10-T11 T12-L1 and the i nstrumentation at L2-L3. From caudal cephalad fashion complete laminectomy of L1, T12, T11 and T10 was performed including bilateral medial facetectomies and foraminotomies addressing severe spinal stenosis. Pedicle screws were then placed in [id number] and L1 bilaterally with assistance of fluoroscopy and connectors attached to the pre-existing luke between L2 and L3. Pro size rods were then contoured and locked in a position bilaterally. The transverse processes of T10 and L2 were then burred to subcortical bleeding bone. Infuse collagen sponge combined with Koros and locally harvested morselized graft was placed in the posterior gutters. 15 round MATT inserted. The incision was then closed with 1 Vicryl and fascia 2-0 Vicryl subcutaneously and 4 Monocryl for final skin closure. Steri-Strips sterile dressing placed. Patient waken taken to PACU in stable condition. Please note spinal cord monitoring was utilized at the procedure no changes noted. Lastly Ty Arana was present at the entire surgery and all the patient positioning complex portion of the surgery and final skin closure. I attest to the content of the Intraoperative Record and any orders documented therein. Any exceptions are noted below.
--- NOTE | 2024-05-02 12:55 | Fluoroscopy Report ---
FL lumbar spine 2-3V CLINICAL HISTORY: T10-L1 DECOMP AND FUSION COMPARISON STUDY: None. FLUOROSCOPY TIME: 52 seconds FLUOROSCOPY IMAGES: 3 Ka,r: 19.3 mGy FINDINGS: 3 fluoroscopic spot images of the thoracolumbar spine worsening a 4 view. The exact levels are difficult to identify on these spot images. However, there appears to be posterior decompression and fusion from T10 through L1 with pedicle screws and rods. There is additional posterior fusion wit hin the lumbar spine which is only partially imaged on this study. The hardware appears intact. IMPRESSION: Fluoroscopic assistance as above. ACT 112: Negative or not required by law. Electronically signed by: Victor Manuel Keating M.D. 05/02/2024 12:53 PM
--- NOTE | 2024-05-02 13:23 | Anesthesiology Progress Note ---
Date of Service May 02, 2024 Anesthesia Post Procedure Vital Signs Vital Signs: Temp Pulse Pulse Resp BP Pulse Ox O2 Del Method 05/02/24 13:15 69 14 143/70 H 96 Room Air 05/02/24 13:05 68 12 160/82 H 100 Oxymask 05/02/24 12:55 75 16 164/86 H 100 Oxymask 05/02/24 12:48 36.7 C 83 12 155/80 H 96 Oxymask 05/02/24 08:57 36.8 C 71 18 143/62 H 97 Room Air 05/02/24 08:53 Room Air O2 Flow Rate 05/02/24 13:15 05/02/24 13:05 5 05/02/24 12:55 5 05/02/24 12:48 5 05/02/24 08:57 05/02/24 08:53 Pain Intensity Lower Back: Pain Intensity: 6 Transfer of Care Handoff Completed per policy Notes Mental Status: alert / awake / arousable Patient Amnestic to Procedure: Yes Nausea / Vomiting: adequately controlled Pain: adequately controlled Airway Patency, RR, SpO2: stable & adequate BP & HR: stable & adequate Hydration State: stable & adequate Anesthetic Complications: no major complications apparent
[2024-05-02] MEDS ORDERED: MAGNESIUM HYDROXIDE SUSP 30 ML UDC PO PRN (13:56)
[2024-05-02] MEDS ORDERED: ONDANSETRON INJ 2 MG/ML 2 ML VIAL IV PRN (13:56)
[2024-05-02] MEDS ORDERED: DO NOT ADMINISTER PNEUMOCOCCAL VACCINE PRN (13:56)
[2024-05-02] MEDS ORDERED: METOCLOPRAMIDE HCL INJ 5 MG/ML 2 ML VIAL IV PRN (13:56)
[2024-05-02] MEDS ORDERED: FUROSEMIDE 20 MG TAB PO PRN (13:56)
[2024-05-02] MEDS ORDERED: SOD PHOSPHATE/SOD BIPHOSPHATE ENEMA 132 ML BTL PR PRN (13:56)
[2024-05-02] MEDS ORDERED: NALOXONE HCL 0.4 MG/1 ML VIAL/CARP IV PRN (13:56)
[2024-05-02] MEDS ORDERED: hydrOXYzine HCl 25 MG TAB PO PRN (13:56)
[2024-05-02] MEDS ORDERED: ALUMINUM/MAGNESIUM SUSP 30 ML UDC PO PRN (13:56)
[2024-05-02] MEDS ORDERED: FAMOTIDINE 20 MG TAB PO PRN (13:56)
[2024-05-02] MEDS ORDERED: LORazepam 0.5 MG in SYRINGE 0.25 ML IV PRN (13:56)
[2024-05-02] MEDS ORDERED: PROMETHAZINE HCL 12.5 MG in SODIUM CHLORIDE 0.9% 50 ML IV PRN (13:56)
[2024-05-02] MEDS ORDERED: diphenhydrAMINE Capsule 25 MG CAP PO PRN (13:56)
[2024-05-02] MEDS ORDERED: DO NOT ADMINISTER FLU VACCINE PRN (13:56)
[2024-05-02] MEDS: LACTATED RINGER'S 1,000 ML IV SCH (14:42)
[2024-05-02] MEDS: ARTIFICIAL TEARS OPB PRN (14:42)
[2024-05-02] MEDS: oxyCODONE HCL IR 5 MG TAB (IMMEDIATE RELEASE) PO PRN (15:00)
--- NOTE | 2024-05-02 16:38 | Hospitalist Consultation ---
Date of Consultation May 02, 2024 Assessment & Plan (1) Myelopathy concurrent with and due to spinal stenosis of thoracic region: Patient had spinal surgery done by Dr. Black Pain management, anticoagulation and disposition to be managed by the primary team Patient is ordered IV fluids. Will continue Check CBC and BMP in a.m. Hold Lasix while getting IV fluids. (2) PAC (premature atrial contraction): Continue metoprolol succinate 100 mg (3) Anxiety and depression: Continue Lexapro (4) Hypothyroidism: Continue Synthroid (5) Hyperlipidemia: Continue statin History of Present Illness Reason for Consultation: Medical management Attending Physician: Andres Black, DO History of Present Illness This is a 78-year-old female admitted for spinal surgery by Dr. Black. I was requested to see the patient in consultation for postoperative medical management. The patient is still feeling slightly groggy from the anesthesia medications. She says that she is having some slight pain at the surgical site. Denies any chest pain, shortness of breath, dizziness. Past medical history * Benign essential hypertension, on lisinopril 20 mg and metoprolol succinate 100 mg * Hyperlipidemia * Paroxysmal atrial tachycardia, on metoprolol 100 mg * Leg swelling, on Lasix 20 mg as needed * GERD * Hypothyroidism * HSV-1 * Anxiety/depression. On Lexapro 20 mg Allergies Allergy/AdvReac Type Severity Reaction Status Date / Time Penicillins Allergy Intermediate Rash/joint Verified 05/02/24 08:48 stiffness Sulfa (Sulfonamide Allergy Intermediate Rash/joint Verified 05/02/24 08:48 Antibiotics) stiffness propoxyphene AdvReac Intermediate N/V Verified 05/02/24 08:48 Home Medications Medication Instructions Recorded Confirmed Type clindamycin HCl 300 mg capsule 600 mg PO UD PRN pre dental 08/05/18 05/02/24 History acetaminophen 650 mg 1,300 mg PO BID 07/10/19 05/02/24 History tablet,extended release (Tylenol Arthritis Pain) diclofenac sodium 50 mg 50 mg PO BID #180 tabs 07/05/23 05/02/24 Rx tablet,delayed release omeprazole 20 mg capsule,delayed 20 mg PO QAM #90 caps 11/16/23 05/02/24 Rx release atorvastatin 40 mg tablet 40 mg PO QPM #90 tabs 12/11/23 05/02/24 Rx levothyroxine 112 mcg tablet 112 mcg PO QAM #90 tabs 12/11/23 05/02/24 Rx lisinopril 20 mg tablet 20 mg PO QAM 01/10/24 05/02/24 History psyllium husk 3.4 gram/5.4 gram 1 tbsp PO DAILY PRN Constipation 02/04/24 05/02/24 History oral powder (Metamucil) betamethasone dipropionate 0.05 % 1 applic topical BID PRN Rash 04/21/24 05/02/24 History topical ointment cholecalciferol (vitamin D3) 125 125 mcg PO BID 04/21/24 05/02/24 History mcg (5,000 unit) tablet (Vitamin D3) furosemide 20 mg tablet 20 mg PO QAM PRN Edema 04/21/24 05/02/24 History metronidazole 0.75 % topical gel 1 applic topical QAM 04/21/24 05/02/24 History (Rosadan) tramadol 50 mg tablet 50 mg PO UD PRN pain, moderate 04/21/24 05/02/24 History valacyclovir 1 gram tablet 1,000 mg PO TID PRN hsv-1 04/21/24 05/02/24 History escitalopram oxalate 20 mg tablet 20 mg PO QAM 05/02/24 05/02/24 History (Lexapro) metoprolol succinate 100 mg 100 mg PO QAM 05/02/24 05/02/24 History tablet,extended release 24 hr Patient History Medical History UTI (urinary tract infection) Urinary symptom or sign Encounter for Medicare annual wellness exam Nausea and vomiting after administration of anesthetic agent years ago, no issues in recent years SOB (shortness of breath) on exertion still occurs Lower extremity edema med prn Urinary incontinence Cardiac murmur pt denies Hx of cold sores med prn Unsteady gait uses walker History of COVID-19 11/2022--mild symptoms, no symptoms now Rosacea DJD (degenerative joint disease) Scoliosis Osteoarthritis Incontinence of urine urgency and incontinence especially in the morning GERD (gastroesophageal reflux disease) controlled Surgical History Hx of cataract extraction bilat History of lumbar spinal fusion 09/23/21 @ [facility] Dr. Black L2-S1 [place] of [place] [facility] [place] History of bladder suspension [place] [facility] [place] History of total right hip replacement 05/2022 History of total knee replacement R/L Hx of melanoma excision History of foot surgery Left hammertoe H/O knee surgery Right knee revision History of carpal tunnel release of both wrists History of bilateral tubal ligation History of colonoscopy History of tonsillectomy History of blepharoplasty bilat Family History Grandmother No problems noted. Father Family history of diabetes mellitus Hypertension Mother Stomach cancer Family history of reaction to anesthesia SEVERE PONV Hypertension Sister Vaginal cancer Grandmother (Paternal) Family history of diabetes mellitus Denies family history of Ovarian cancer Prostate cancer Myocardial infarction Breast cancer Colorectal cancer Social History Smoking Status: Never smoker Second Hand Exposure: Yes (hx); Do You Dip or Chew Tobacco: No; Tobacco Cessation Education Requested by Patient: No Hx Alcohol Use: No Hx Substance Use: No Preferred Language: Swedish Communication Ability: Effective Visual Impairment: Limited Hearing Ability: Normal Conference Director Required: No Beliefs That Will Affect Care: None marital status: / Current Living Situation: Alone Current Living Situation Comment: lives in skilled nursing community current occupational status: retired How many Children do You have: 2 Other Information That Helps Us Care for You: No Feels Safe at Home: Yes Safety Concerns: Feels Safe At This Time Childhood Exposure to Second-Hand Smoke: Yes Diet: regular caffeine: Yes during the past year weight has: remained stable Dental Care, Regularly: Yes Physical Activity Frequency: Does not Exercise Seatbelt Use: always Sunscreen Use: Yes Do you think of yourself as: straight/heterosexual Sexual Activity: has been sexually active, but not for at least 12 months Gender Identity: Female Assistive Devices: Cane, Glasses and Walker Review of Systems Review of Systems: All systems reviewed & are unremarkable except as noted in Subjective Physical Exam Physical Exam: General appearance: Awake, conversant, able to answer questions appropriately. AOx3. Pupils: Equally reactive to light and accommodation Neck: No masses, no thyromegaly Respiration: Clear to auscultation bilaterally. Normal effort Cardiovascular: S1-S2/regular rate and rhythm. No murmur, rubs or gallop. No edema. Abdomen: Soft, nontender, nondistended. No hepatosplenomegaly Musculoskeletal: No clubbing, no cyanosis, normal range of motion Skin: No rashes, no nodules Neuro exam: Cranial nerves intact, sensation grossly intact Psychiatric: Patient has good judgment and insight. AOx3. Mood and affect appear normal Lymphatics: No cervical or axillary lymphadenopathy noted Results & Data Results & Data Vital Signs (Past 12 Hours) Vital Signs Temp Pulse Pulse Resp BP Pulse Ox O2 Del Method 05/02/24 15:53 36.3 C L 71 14 147/76 H 94 Room Air 05/02/24 14:50 36.3 C L 68 16 150/78 H 96 Room Air 05/02/24 14:25 36.3 C L 78 14 139/70 98 Room Air 05/02/24 14:00 36.7 C 71 16 166/99 H 94 Room Air 05/02/24 13:35 36.5 C 66 12 159/80 H 93 Room Air 05/02/24 13:25 68 13 132/68 93 Room Air 05/02/24 13:15 69 14 143/70 H 96 Room Air 05/02/24 13:05 68 12 160/82 H 100 Oxymask 05/02/24 12:55 75 16 164/86 H 100 Oxymask 05/02/24 12:48 36.7 C 83 12 155/80 H 96 Oxymask 05/02/24 08:57 36.8 C 71 18 143/62 H 97 Room Air 05/02/24 08:53 Room Air O2 Flow Rate 05/02/24 15:53 05/02/24 14:50 05/02/24 14:25 05/02/24 14:00 05/02/24 13:35 05/02/24 13:25 05/02/24 13:15 05/02/24 13:05 5 05/02/24 12:55 5 05/02/24 12:48 5 05/02/24 08:57 05/02/24 08:53 PG Care Time/CCT Total # of Minutes Spent Total Time Spent with Patient: Total time spent is greater than 50% in coordination of care (as documented) at patient's floor/unit and/or counseling patient: Coding Level of Care Code 13875 IN/OBS CONSULT LVL 3,45M Diagnoses Myelopathy concurrent with and due to spinal stenosis of thoracic region M48.04; G99.2 PAC (premature atrial contraction) I49.1 Anxiety and depression F41.9; F32.9 Acquired hypothyroidism E03.9 Hypothyroidism type: acquired Mixed hyperlipidemia E78.2 Hyperlipidemia type: mixed hyperlipidemia (4) Hypothyroidism Hypothyroidism type: acquired Qualified Code(s): E03.9 - Hypothyroidism, unspecified (5) Hyperlipidemia Hyperlipidemia type: mixed hyperlipidemia Qualified Code(s): E78.2 - Mixed hyperlipidemia
[2024-05-02] MEDS: traMADol HCL 50 MG TABLET PO PRN (17:16)
[2024-05-02] MEDS: ACETAMINOPHEN 500 MG TAB PO PRN (17:17)
[2024-05-02] MEDS: CLINDAMYCIN/D5W 600 MG/50 ML BAG IV SCH (18:09)
[2024-05-02] MEDS: CHOLECALCIFEROL 125 MCG (5,000 UNITS) TAB PO SCH (20:01)
[2024-05-02] MEDS: DOCUSATE SODIUM/SENNA 50/8.6MG TAB PO SCH (20:01)
[2024-05-02] MEDS: ATORVASTATIN 40 MG TAB PO SCH (20:01)
[2024-05-02] MEDS: HYDROmorphone INJ 1 MG/ML SYRINGE IV PRN (23:52)
[2024-05-03] MEDS: POLYETHYLENE (MIRALAX) 17 GM PACK PO SCH (05:50)
[2024-05-03] MEDS: LEVOTHYROXINE SODIUM 112 MCG TABLET PO SCH (05:50)
[2024-05-03 07:14] LABS: Basophils # (auto) 0.02 K/uL (0.00-0.20); Basophils % (auto) 0.2 %; Hematocrit (blood only) 31.4 % (37.0-47.0); Immature Granulocytes # (auto) 0.05 K/uL (0.01-0.20); Immature Granulocytes % (auto) 0.4 %; Lymphocytes # (auto) 1.86 K/uL (1.20-3.40); Lymphocytes % (auto) 16.2 %; Mean Corpuscular Hemoglobin 28.8 pg (25.0-34.0); Mean Corpuscular Hgb Conc 31.8 g/dL (32.0-36.0); Mean Corpuscular Volume 90.5 fL (80.0-100.0); Mean Platelet Volume 9.7 fL (9.4-12.4); Monocytes # (auto) 1.42 K/uL (0.11-0.59); Monocytes % (auto) 12.4 %; Neutrophils # (auto) 8.11 K/uL (1.40-6.50); Neutrophils % (auto) 70.8 %; Platelet Count 255 K/uL (130-400); RDW Coefficient of Variation 14.6 % (11.5-14.5); Red Blood Count 3.47 M/uL (4.20-5.40); White Blood Count 11.46 K/ul (4.8-10.8)
[2024-05-03 07:33] LABS: Calcium 8.8 mg/dl (8.6-10.3); Creatinine Clr Calc Pharmacy 75.4 ml/min; Est GFR (African American) 90.6 ml/min; Est GFR (Non-African American) 78.1 ml/min; Potassium 4.1 mmol/L (3.5-5.1)
[2024-05-03] MEDS: metroNIDAZOLE 0.75% TOPICAL GEL 45 GM TUBE TOP SCH (08:34)
[2024-05-03] MEDS: ESCITALOPRAM OXALATE 20 MG TAB PO SCH (08:34)
[2024-05-03] MEDS: dexAMETHasone 6 MG in SYRINGE 0 ML IV SCH (08:34)
[2024-05-03] MEDS: METOPROLOL SUCC 50MG EXT REL TAB PO SCH (08:34)
[2024-05-03] MEDS: lisinopril 20 MG TAB PO SCH (08:34)
[2024-05-03] MEDS: PANTOprazole 40 MG TAB PO SCH (08:35)
--- NOTE | 2024-05-03 10:05 | Orthopedic Progress Note ---
Date of Service May 03, 2024 Assessment & Plan (1) Myelopathy concurrent with and due to spinal stenosis of thoracic region: Plan: At this time continue physical therapy monitor her MATT output and progress. Hopefully plan for rehab versus home early next week. Admission and Anticipated Discharge Date Admission Date: May 02, 2024 Subjective This is back pain is controlled leg symptoms markedly improved Physical Exam Physical Exam: Patient is up out of the chair walking with a walker. She is good strength testing. Results & Data Vital Signs (Past 12 Hours) Vital Signs Temp Pulse Pulse Resp BP Pulse Ox O2 Del Method 05/03/24 07:00 37.0 C 85 14 114/67 95 Room Air 05/03/24 05:09 36.8 C 82 16 108/65 96 Room Air 05/03/24 00:28 37.5 C 82 86/48 L 94 Room Air Queries Orthopedic Spine Obesity: Yes
--- NOTE | 2024-05-03 14:03 | Hospitalist Progress Note ---
Date of Service May 03, 2024 Assessment & Plan (1) Myelopathy concurrent with and due to spinal stenosis of thoracic region: Plan: Patient had spinal surgery done by Dr. Black Pain management, anticoagulation and disposition to be managed by the primary team IV fluids discontinued May resume Lasix as needed for leg swelling (2) PAC (premature atrial contraction): Plan: Continue metoprolol succinate 100 mg (3) Anxiety and depression: Plan: Continue Lexapro (4) Hypothyroidism: Plan: Continue Synthroid (5) Hyperlipidemia: Plan: Continue statin Admission and Anticipated Discharge Date Admission Date: May 02, 2024 Subjective Patient feels well overall. Denies chest pain or shortness of breath Review of Systems Review of Systems: All systems reviewed & are unremarkable except as noted in Subjective Physical Exam Physical Exam: General: Awake, conversant Heart: S1, S2/regular rate and rhythm, no murmur rubs or gallops Lungs: Clear to auscultation bilaterally. Normal effort Abdomen: Soft/nontender/nondistended. No hepatosplenomegaly Extremities: No clubbing/cyanosis. No edema Behavior: Appropriate, cooperative Results & Data Results & Data Vital Signs (Past 12 Hours) Vital Signs Temp Pulse Pulse Resp BP Pulse Ox O2 Del Method 05/03/24 10:58 36.6 C 82 17 100/62 95 Room Air 05/03/24 08:00 Room Air 05/03/24 07:00 37.0 C 85 14 114/67 95 Room Air 05/03/24 05:09 36.8 C 82 16 108/65 96 Room Air Laboratory Results Abnormal lab results 05/03/24 Range/Units 06:42 WBC 11.46 H (4.8-10.8) K/ul RBC 3.47 L (4.20-5.40) M/uL Hgb 10.0 L (12.0-16.0) g/dl Hct 31.4 L (37.0-47.0) % MCHC 31.8 L (32.0-36.0) g/dL RDW Std Deviation 48.0 H (36.4-46.3) fL RDW Coeff of Irena 14.6 H (11.5-14.5) % Neut # (Auto) 8.11 H (1.40-6.50) K/uL [place] # (Auto) 1.42 H (0.11-0.59) K/uL Sodium 135 L (136-145) mmol/L BUN/Creatinine Ratio 27.0 H (10-20) Glucose 136 H (70-99(Fasting)) mg/dl PG Care Time/CCT Total # of Minutes Spent Total Time Spent with Patient: Total time spent is greater than 50% in coordination of care (as documented) at patient's floor/unit and/or counseling patient: Coding Level of Care Code 33273 SUB INP/OBS CARE 2/35MIN Diagnoses Myelopathy concurrent with and due to spinal stenosis of thoracic region M48.04; G99.2 PAC (premature atrial contraction) I49.1 Anxiety and depression F41.9; F32.9 Acquired hypothyroidism E03.9 Hypothyroidism type: acquired Mixed hyperlipidemia E78.2 Hyperlipidemia type: mixed hyperlipidemia (4) Hypothyroidism Hypothyroidism type: acquired Qualified Code(s): E03.9 - Hypothyroidism, unspecified (5) Hyperlipidemia Hyperlipidemia type: mixed hyperlipidemia Qualified Code(s): E78.2 - Mixed hyperlipidemia
[2024-05-03] MEDS: HYDROmorphone INJ 0.5 MG/0.5 ML SYR IV PRN (21:32)
[2024-05-04] MEDS: ONDANSETRON 4 MG OD TAB PO PRN (08:21)
--- NOTE | 2024-05-04 10:35 | Orthopedic Progress Note ---
Date of Service May 04, 2024 Assessment & Plan (1) Myelopathy concurrent with and due to spinal stenosis of thoracic region: Plan: I will advance her bowel regimen today. Will continue with physical therapy occupational therapy. Plan for rehab when bed available. Admission and Anticipated Discharge Date Admission Date: May 02, 2024 Subjective Patient's back pain is controlled leg symptoms markedly improved struggling with some nausea. No bowel movement. Physical Exam Physical Exam: Patient is in the chair. She is comfortable. Is constricted testing. Results & Data Vital Signs (Past 12 Hours) Vital Signs Temp Pulse Resp BP Pulse Ox O2 Del Method 05/04/24 06:56 36.5 C 80 18 168/70 H 93 Room Air Queries Orthopedic Spine Acute Posthemorrhagic Anemia: Yes Obesity: Yes
[2024-05-04] MEDS: bisacodyL 10 MG SUPP PR PRN (13:56)
--- NOTE | 2024-05-04 16:06 | Hospitalist Progress Note ---
Date of Service May 04, 2024 Assessment & Plan (1) Myelopathy concurrent with and due to spinal stenosis of thoracic region: Plan: Patient had spinal surgery done by Dr. Black Pain management, anticoagulation and disposition to be managed by the primary team IV fluids discontinued May resume Lasix as needed for leg swelling. Patient tells me that her swelling is much better than her usual. Will keep the Lasix on hold for now. Zofran will be offered for her nausea (2) PAC (premature atrial contraction): Plan: Continue metoprolol succinate 100 mg (3) Anxiety and depression: Plan: Continue Lexapro (4) Hypothyroidism: Plan: Continue Synthroid (5) Hyperlipidemia: Plan: Continue statin Admission and Anticipated Discharge Date Admission Date: May 02, 2024 Subjective Patient feels nauseated this morning. Denies chest pain or shortness of breath. Review of Systems Review of Systems: All systems reviewed & are unremarkable except as noted in Subjective Physical Exam Physical Exam: General: Awake, conversant Heart: S1, S2/regular rate and rhythm, no murmur rubs or gallops Lungs: Clear to auscultation bilaterally. Normal effort Abdomen: Soft/nontender/nondistended. No hepatosplenomegaly Extremities: No clubbing/cyanosis. Bilateral 1+ chronic edema. Patient says that her edema is much better than her usual. Behavior: Appropriate, cooperative Results & Data Results & Data Vital Signs (Past 12 Hours) Vital Signs Temp Pulse Resp BP Pulse Ox O2 Del Method 05/04/24 15:00 36.8 C 70 16 100/60 94 Room Air 05/04/24 11:00 36.8 C 78 16 92/53 L 96 Room Air 05/04/24 07:45 Room Air 05/04/24 06:56 36.5 C 80 18 168/70 H 93 Room Air PG Care Time/CCT Total # of Minutes Spent Total Time Spent with Patient: Total time spent is greater than 50% in coordination of care (as documented) at patient's floor/unit and/or counseling patient: Coding Level of Care Code 19751 SUB INP/OBS CARE 2/35MIN Diagnoses Myelopathy concurrent with and due to spinal stenosis of thoracic region M48.04; G99.2 PAC (premature atrial contraction) I49.1 Anxiety and depression F41.9; F32.9 Acquired hypothyroidism E03.9 Hypothyroidism type: acquired Mixed hyperlipidemia E78.2 Hyperlipidemia type: mixed hyperlipidemia (4) Hypothyroidism Hypothyroidism type: acquired Qualified Code(s): E03.9 - Hypothyroidism, unspecified (5) Hyperlipidemia Hyperlipidemia type: mixed hyperlipidemia Qualified Code(s): E78.2 - Mixed hyperlipidemia
[2024-05-04] MEDS: ACETAMINOPHEN 1,000 MG/100 ML VIAL IV PRN (16:30)
--- NOTE | 2024-05-05 09:28 | Orthopedic Progress Note ---
Date of Service May 05, 2024 Assessment & Plan (1) Myelopathy concurrent with and due to spinal stenosis of thoracic region: Plan: At this time continue physical therapy. Patient will attempt stairs today. We are awaiting rehab placement. Admission and Anticipated Discharge Date Admission Date: May 02, 2024 Subjective Back pain is controlled leg symptoms markedly improved Physical Exam Physical Exam: Patient is in the chair at bedside. She is comfortable. Skin strength testing. Results & Data Vital Signs (Past 12 Hours) Vital Signs Temp Pulse Resp BP Pulse Ox O2 Del Method 05/05/24 07:18 36.7 C 77 16 138/78 95 Room Air Queries Orthopedic Spine Acute Posthemorrhagic Anemia: Yes Obesity: Yes
--- NOTE | 2024-05-05 13:21 | Hospitalist Progress Note ---
Date of Service May 05, 2024 Assessment & Plan (1) Myelopathy concurrent with and due to spinal stenosis of thoracic region: Plan: Patient had spinal surgery done by Dr. Black Pain management, anticoagulation and disposition to be managed by the primary team IV fluids discontinued May resume Lasix as needed for leg swelling. Patient says that she would to use Lasix for this degree of leg swelling. Will order Lasix x 1 today. Zofran will be offered for her nausea (2) PAC (premature atrial contraction): Plan: Continue metoprolol succinate 100 mg (3) Anxiety and depression: Plan: Continue Lexapro (4) Hypothyroidism: Plan: Continue Synthroid (5) Hyperlipidemia: Plan: Continue statin Admission and Anticipated Discharge Date Admission Date: May 02, 2024 Subjective Patient feels well today. Not nauseous anymore today. Review of Systems Review of Systems: All systems reviewed & are unremarkable except as noted in Subjective Physical Exam Physical Exam: General: Awake, conversant Heart: S1, S2/regular rate and rhythm, no murmur rubs or gallops Lungs: Clear to auscultation bilaterally. Normal effort Abdomen: Soft/nontender/nondistended. No hepatosplenomegaly Extremities: No clubbing/cyanosis. Bilateral 1+ chronic edema. Behavior: Appropriate, cooperative Results & Data Results & Data Vital Signs (Past 12 Hours) Vital Signs Temp Pulse Resp BP Pulse Ox O2 Del Method 05/05/24 07:18 36.7 C 77 16 138/78 95 Room Air PG Care Time/CCT Total # of Minutes Spent Total Time Spent with Patient: Total time spent is greater than 50% in coordination of care (as documented) at patient's floor/unit and/or counseling patient: Coding Level of Care Code 65449 SUB INP/OBS CARE 2/35MIN Diagnoses Myelopathy concurrent with and due to spinal stenosis of thoracic region M48.04; G99.2 PAC (premature atrial contraction) I49.1 Anxiety and depression F41.9; F32.9 Acquired hypothyroidism E03.9 Hypothyroidism type: acquired Mixed hyperlipidemia E78.2 Hyperlipidemia type: mixed hyperlipidemia (4) Hypothyroidism Hypothyroidism type: acquired Qualified Code(s): E03.9 - Hypothyroidism, unspecified (5) Hyperlipidemia Hyperlipidemia type: mixed hyperlipidemia Qualified Code(s): E78.2 - Mixed hyperlipidemia
[2024-05-05] MEDS: FUROSEMIDE 20 MG TAB PO ONE (13:32)
[2024-05-05] MEDS: LORazepam 0.5 MG TAB PO PRN (20:25)
--- NOTE | 2024-05-06 08:28 | Orthopedic Progress Note ---
Date of Service May 06, 2024 Assessment & Plan (1) Myelopathy concurrent with and due to spinal stenosis of thoracic region: Plan: At this time we will continue physical therapy. Will discontinue the drain today. We are waiting for discharge to rehab today. She may also have to consider discharge home before rehab tonight. Admission and Anticipated Discharge Date Admission Date: May 02, 2024 Subjective Patient's back pain is improving. Leg symptoms markedly improved. Ambulating well. Bowels working. Physical Exam Physical Exam: Patient is in the chair at the bedside. She is comfortable. Is for strength testing. Queries Orthopedic Spine Acute Posthemorrhagic Anemia: Yes Obesity: Yes
== END 2024-05-06 13:29 | DRG 460 ==
LOC: ASU 07:55 → 3N 12:21